=== PATIENT | female | born 1945 | race Caucasian/White ===

== ENCOUNTER → 2016-11-16 | Outpatient (CLI) | payer OTHER, MEDICARE ==
[~2016-11-16] MED LIST: ALBU1AER9 INH; ASPI81TA28 PO; CETI10TA84 PO; CHOL1000 PO; COQ10 PO; FENO145T26 PO; GLC500 PO; MULT-506 PO; OMEG10007 PO; ZNTT/150 PO; pro air PO
[2016-11-16 10:07] LABS: BLOOD UREA NITROGEN 20 mg/dl (7-18); BUN/CREATININE RATIO 19.8 (10-20); CALCIUM 9.4 mg/dl (8.5-10.1); CARBON DIOXIDE 25 mmol/L (21-32); CHLORIDE 104 mmol/L (98-107); ESTIMATED AVERAGE GLUCOSE 123 mg/dl; GLUCOSE 96 mg/dl (70-99); HA1C FLAG Normal (Normal); POTASSIUM 3.6 mmol/L (3.5-5.1); SODIUM 140 mmol/L (136-145)
[2016-11-16 10:11] LABS: CHOLESTEROL 213 mg/dl (0-200); CHOLESTEROL/HDL RATIO 4.6; HDL CHOLESTEROL 46 mg/dl; LDL CHOLESTEROL CALCULATED 134 mg/dl; TRIGLYCERIDES 165 mg/dl (0-150); VERY LOW DENSITY LIPOPROT CALC 33 mg/dl
--- NOTE | 2016-11-22 09:03 | CODING QUERY MEDICAL NECESSITY ---
SUPPORTING DIAGNOSIS NEEDED A supporting diagnosis is required for the test/procedure performed on this patient in order for us to be reimbursed by the patient's insurance. Please provide a supporting diagnosis for the following test/procedure listed below next to the test name along with your signature. *If there is no additional diagnosis for this patient that would support the following test/procedure please document that below next to the test/procedure. Test(s)/Procedure(s) that require a supporting diagnosis: * GLYCATED HEMOGLOBIN DIAGNOSIS: * DOS: 11/16/16 Provider Signature: Date: Thank you Sammi Pham Health Information Management Once completed, please kindly fax back to [phone] For questions please call [phone]
== END | disposition home or self-care (01) ==
LOC: C.LAB1850 07:13
PROVIDERS: ATTEND Internal Medicine
DX: Z00.00 Encounter for general adult medical examination without abnormal findings (principal); Z11.59 Encounter for screening for other viral diseases; R73.03 Prediabetes; J45.909 Unspecified asthma, uncomplicated; E78.5 Hyperlipidemia, unspecified

== ENCOUNTER → 2017-04-11 | Outpatient (CLI) | payer OTHER, MEDICARE ==
[2017-04-11 09:54] LABS: CHOLESTEROL/HDL RATIO 2.7
[2017-04-11 10:00] LABS: ESTIMATED AVERAGE GLUCOSE 117 mg/dl; HA1C FLAG Normal (Normal)
== END | disposition home or self-care (01) ==
LOC: C.LAB1850 07:36
PROVIDERS: ATTEND Internal Medicine
DX: E78.5 Hyperlipidemia, unspecified (principal); R73.03 Prediabetes

== ENCOUNTER → 2017-05-16 | Outpatient (CLI) | payer OTHER, MEDICARE ==
--- NOTE | 2017-05-16 16:43 | MAMMOGRAPHY REPORT ---
BILATERAL DIGITAL SCREENING MAMMOGRAM WITH CAD: 05/16/2017 CLINICAL HISTORY: Routine screening. Patient has no complaints. TECHNIQUE: Bilateral CC, MLO and repeat left MLO views were obtained. Current study was also evalua nikolai with a Computer Aided Detection (CAD) system. COMPARISON: Comparison is made to exams dated: 05/12/2016 mammogram, 05/11/2015 mammogram, 05/09/2014 ma mmogram, 05/08/2013 mammogram, 05/07/2012 mammogram, and 05/06/2011 [facility]. BREAST COMPOSITION: There are scattered areas of fibroglandular density in both breasts. FINDINGS: There are possible clusters of punctate microcalcifications in the lateral, middle one thi rd of the left breast, and in the slightly medial, middle one third of the left breast on the CC view , thought to project superiorly based on the MLO view. Additional spot magnification views are recom mended. There are a few benign-appearing coarse calcifications in both breasts. No other suspicious mass, ar chitectural distortion or cluster of suspicious microcalcifications is seen. IMPRESSION: ACR BI-RADS CATEGORY 0: INCOMPLETE EVALUATION: NEED ADDITIONAL IMAGING EVALUATION The possible clusters of punctate microcalcifications in the medial and lateral left breast need naomi tional evaluation. The patient will be called to schedule an appointment. Approximately 10% of breast cancers are not detected with mammography. A negative mammographic report should not delay biopsy if a clinically suggestive mass is present. Andreina Blanco M.D. ay/:05/16/2017 14:51:02 Annual Giving Officer: Nathalia BYRD([place])(Siddharth)(TR), [facility] letter sent: Addl Imaging 0 BI-RADS Code: ACR BI-RADS Category 0: Incomplete Evaluation: Need Additional Imaging Evaluation
== END | disposition home or self-care (01) ==
LOC: C.MAMM 10:51
PROVIDERS: ATTEND Obstetrics & Gynecology
DX: Z12.31 Encounter for screening mammogram for malignant neoplasm of breast (principal); R92.8 Other abnormal and inconclusive findings on diagnostic imaging of breast

== ENCOUNTER → 2017-05-18 | Outpatient (CLI) | payer OTHER, MEDICARE ==
--- NOTE | 2017-05-18 15:39 | MAMMOGRAPHY REPORT ---
UNILATERAL LEFT DIGITAL DIAGNOSTIC MAMMOGRAM: 05/18/2017 CLINICAL HISTORY: 71-year-old woman called back from screening mammography for left breast microcalci fications. TECHNIQUE: Spot magnification left CC and ML views were obtained. COMPARISON: Comparison is made to exams dated: 05/16/2017 mammogram, 05/12/2016 mammogram, 05/11/2015 choco mogram, 05/09/2014 mammogram, 05/08/2013 mammogram, and 05/07/2012 mammogram - [facility]. BREAST COMPOSITION: There are scattered areas of fibroglandular density in the left breast. FINDINGS: There are 2 small clusters and a loose grouping of microcalcifications in the left breast. This too small clusters of punctate microcavitation's measuring 2.2 and 1.5 mm are located in the l ateral, middle one third of the breast on the CC view, thought to project superiorly based on the spo t magnification ML view. A loose grouping of microcalcifications in the slightly medial, middle one third of the breast on the spot magnification CC view are also thought to project superiorly on the M L view. There is no obvious associated architectural distortion, mass or asymmetry. No other suspic ious findings are seen in the visualized left breast. When comparing back to prior available mammogr ams, the tightest cluster of microcalcifications in the lateral left breast (annotation #1) was not s een prior to the 2015 mammograms and is therefore indeterminate. Although this could represent benig n fibrocystic change, definitive characterization with tissue sampling is recommended. Pending benig n pathology results, could follow the other similar appearing cluster and loose grouping of microcalc ifications in 6 months to ensure stability. IMPRESSION: ACR BI-RADS CATEGORY 4B: INTERMEDIATE SUSPICION FOR MALIGNANCY 1. Left breast stereotactic guided biopsy is recommended for a small 2 mm cluster of punctate microc alcifications in the upper outer middle one third of the breast. 2. Pending benign pathology results, could follow the other similar appearing smaller cluster of pun ctate microcalcifications also identified in the left upper outer quadrant, and loose grouping of a m icrocalcifications in the medial left breast in 6 months. These results and recommendations were discussed with the patient at the time of the exam. She tenta tively scheduled the left breast biopsy prior to leaving our department. Approximately 10% of breast cancers are not detected with mammography. A negative mammographic report should not delay biopsy if a clinically suggestive mass is present. Anrdeina Blanco M.D. ay/:05/18/2017 14:31:53 Integration Project Manager: Caren BYRD([place])(Siddharth), [facility] letter sent: Abnormal 4/5 BI-RADS Code: ACR BI-RADS Category 4B: Intermediate Suspicion For Malignancy
== END | disposition home or self-care (01) ==
LOC: C.MAMM 13:11
PROVIDERS: ATTEND Obstetrics & Gynecology
DX: Z12.31 Encounter for screening mammogram for malignant neoplasm of breast (principal); R92.0 Mammographic microcalcification found on diagnostic imaging of breast

== ENCOUNTER → 2017-05-24 | Outpatient (CLI) | payer OTHER, MEDICARE ==
--- NOTE | 2017-05-24 09:47 | Discharge Instructions ---
Discharge Instructions Procedure Procedure Date: May 24, 2017. Reason for visit: Left Calcifications. Discharge Discharge Date: May 24, 2017. Discharge Diagnosis: post left breast stereotactic guided biopsy Medications Restart Stopped Medication(s): May restart Aspirin today or tomorrow Instructions Activity Recommendations: Additional Limitations Return to School/Work: no limitations Recommended Home Diet: No Limitations Provider Instructions: ACTIVITY RECOMMENDATIONS: * No lifting, pushing, pulling or exercising the affected side for three days. RETURN TO SCHOOL/WORK: * You may return to work/school after the procedure, but do not perform any strenuous activities for 24 to 48 hours. MEDICATIONS: * Tylenol (two 325 mg) every four to six hours if needed for mild pain (if not allergic to Tylenol). DIET: * Resume previous diet. SPECIAL CARE INSTRUCTIONS: * Keep biopsy site dry for 24 hours. May shower after 24 hours, but do not soak (bathe) incision. * May remove Tegaderm (plastic patch) tomorrow AFTER showering. * Leave the steri-strips on for one week. Allow the steri-strips to fall off by themselves. If not off after one week, you may remove them. You may place a Bandaid crosswise over the strips, if desired. * Apply ice 10 minutes on and 10 minutes off as needed. * Wear a bra at bedtime to sleep more comfortably for 2-3 days. * Your referring physician should have the results after approximately 5 to 7 business days. * Call for unusual bleeding, fever, drainage, etc or if you have any questions call [phone] during normal business hours or after hours call Dr Blanco, . FOLLOW UP VISIT: Follow-up with Referring Physician as scheduled. Allergies Coded Allergies: Bacitracin (Verified Allergy, Intermediate, HIVES, 10/13/15) Neomycin (Verified Allergy, Intermediate, HIVES, 10/13/15) Polymyxin B (Verified Allergy, Intermediate, HIVES, 10/13/15) Clindamycin (Verified Allergy, Mild, 10/13/15) Penicillins (Verified Allergy, Mild, 10/13/15) Hydrochlorothiazide w/Triamterene (Verified Allergy, Unknown, `, 10/13/15) Nickel (Verified Allergy, Unknown, `, 10/13/15) Sulfa Drugs (Verified Allergy, Unknown, 10/13/15) Tetracycline (Verified Allergy, Unknown, RASH, 10/13/15) Leisa Bobo Recommendations: Call your doctor if: * Temperature above 101 degrees * Pain not relieved by pain medicine ordered * There is increased drainage or redness from any incision * You have any unanswered questions or concerns. Your Doctors Instructions noted above were prepared by provider Andreina Blanco. Patient Signature Section: Patient Instructions Signature Page Karo Ashraf Patient (or Guardian) Signature/Date: I have read and understand the instructions given to me by my caregivers. Caregiver/RN/Doctor Signature/Date: The above-named patient and/or guardian has received patient instructions on this date. + Original Patient Signature Page (only) stays with chart. Please make copy for patient.
--- NOTE | 2017-05-24 14:20 | MAMMOGRAPHY REPORT ---
UNILATERAL LEFT DIGITAL DIAGNOSTIC MAMMOGRAM: 05/24/2017 CLINICAL HISTORY: Status post stereotactic guided biopsy of a small cluster of punctate microcalcific ations in the upper outer middle one third of the left breast. Please refer to the report from left breast stereotactic biopsy performed at the same time for full d etail. IMPRESSION: POST PROCEDURE IMAGING FOR MARKER PLACEMENT Please refer to the report from left breast stereotactic biopsy performed at the same time for full d etail. Approximately 10% of breast cancers are not detected with mammography. A negative mammographic report should not delay biopsy if a clinically suggestive mass is present. Andreina Blanco M.D. ay/:05/24/2017 09:34:13 Chief Mechanical Engineer: Marc BYRD([place])(M), [facility] BI-RADS Code: Post Procedure Imaging For Marker Placement
--- NOTE | 2017-05-24 14:20 | MAMMOGRAPHY REPORT ---
THIS REPORT HAS BEEN AMENDED. STEREOTACTIC GUIDED BIOPSY LEFT BREAST: 05/24/2017 CLINICAL HISTORY: Small indeterminate cluster of punctate microcalcifications in the upper outer midd le one third of the left breast. Patient presents for stereotactic biopsy. COMPARISON: Comparison is made to exams dated: 05/18/2017 mammogram, 05/16/2017 mammogram, 05/12/2016 mamm ogram, 05/11/2015 mammogram, 05/09/2014 mammogram, and 05/08/2013 mammogram - [facility]. PATIENT CONSENT: After explaining the risks, benefits and alternatives of the procedure to the patien t, informed consent was obtained both verbally and in writing. Specific risks include: Bleeding, inf ection, puncture of adjacent structure, pain, nontarget biopsy, sampling error, metal allergy and med ication reaction. PROCEDURE DESCRIPTION: A time-out was performed and the left breast was confirmed as the site of biop sy. The patient was placed prone on the stereotactic biopsy table and the breast was placed in CC fro m above compression. A manufacturing director image was obtained that demonstrated the clustered microcalcifications i n question. They are amenable to sterotactic biopsy. Then +15 and -15 stereo pair images were obta ined. The calcifications were targeted utilizing the coordinates obtained by the computer. The skin was prepped with Betadine. 1% Lidocaine with and without epinipherine was administered as local anest hesia. A small skin incision was made. Through the incision, the needle was inserted to the depth de termined by the computer. 7 samples were obtained using a [employer] 9-gauge vacuum-assisted biopsy device. The specimen radiograph demonstrated several traveling sales representative microcalcifications, therefore, a metallic marker was placed at the biopsy site. There was no immediate complication. Hemostasis was a chieved after several minutes of manual compression. The samples were sent to pathology in a single appropriately labeled container, as 1-2 calcifications were noted within multiple samples. Postprocedure CC and ML views of the left breast were obtained. There is a new dumbbell shaped meta llic biopsy marker and a small, 1.5 cm hematoma along the tract of the biopsy. No residual microcalc ifications are identified. There is alignment of the biopsy marker clip with the expected prior loca tion of the small cluster of punctate microcalcifications. IMPRESSION: STEREOTACTIC GUIDED BIOPSY Status post left breast stereotactic guided biopsy of a grouping of punctate microcavitation's in the upper outer quadrant, with metallic marker placed at the site. Pending benign pathology results, follow-up left diagnostic mammograms include spot magnification vie ws are recommended to ensure stability in 6 months of other groupings of microcalcifications, also de scribed on the diagnostic mammogram report dated 05/18/2017. The patient will receive notification of the biopsy results from her referring physician. Andreina Blanco M.D. ay/:05/24/2017 09:57:27 Leach Cell Operator: Marc BYRD([place])(M), [facility] AMENDMENT: 05/31/2017 Andreina Blanco M.D. Pathology results from the stereotactic guided biopsy of a cluster of microcalcifications in the uppe r outer quadrant of the left breast yielded benign breast tissue with microcalcifications. Negative for in situ and invasive carcinoma. The pathology results are concordant with the imaging appearance . A six-month follow-up left diagnostic mammogram including spot magnification views is recommended to ensure stability of other similar appearing loosely grouped microcalcifications seen in the left [address].
== END | disposition home or self-care (01) ==
LOC: C.MAMM 08:12
PROVIDERS: ATTEND Obstetrics & Gynecology
DX: R92.0 Mammographic microcalcification found on diagnostic imaging of breast (principal)

== ENCOUNTER → 2017-08-22 | Outpatient (CLI) | payer OTHER, MEDICARE ==
[2017-08-22 15:32] LABS: BASO % 0.7 %; BASO ABS # 0.05 K/uL (0-0.2); COMPLETE YES; EOS % 3.9 %; HEMATOCRIT 43.4 % (37-47); IG% 0.4 %; LYMPH % 24.4 %; LYMPH ABS # 1.86 K/uL (1.2-3.4); MEAN CORPUSCULAR HEMOGLOBIN 30.2 pg (25-34); MEAN CORPUSCULAR HGB CONC 33.2 g/dl (32-36); MEAN PLATELET VOLUME 9.6 fL (7.4-10.4); MONO % 6.8 %; NEUT % 63.8 %; PLATELET COUNT 248 K/uL (130-400); RED BLOOD COUNT 4.77 M/uL (4.2-5.4); WHITE BLOOD COUNT 7.61 K/uL (4.8-10.8)
== END | disposition home or self-care (01) ==
LOC: C.LAB1850 14:26
PROVIDERS: ATTEND Internal Medicine
DX: R59.0 Localized enlarged lymph nodes (principal)

== ENCOUNTER → 2017-10-12 | Outpatient (CLI) | payer OTHER, MEDICARE ==
[2017-10-12 09:33] LABS: HEMOGLOBIN 14.1 g/dL (12.0-16.0); MEAN CELL VOLUME 89.7 fL (80-100); MEAN CORPUSCULAR HEMOGLOBIN 30.1 pg (25-34); MEAN CORPUSCULAR HGB CONC 33.6 g/dl (32-36); MEAN PLATELET VOLUME 9.4 fL (7.4-10.4); PLATELET COUNT 258 K/uL (130-400); RED CELL DISTRIBUTION WIDTH CV 14.5 % (11.5-14.5); RED CELL DISTRIBUTION WIDTH SD 47.2 fL (36.4-46.3); WHITE BLOOD COUNT 6.72 K/uL (4.8-10.8)
[2017-10-12 10:27] LABS: ALT/SGPT 25 U/L (12-78); AST/SGOT 17 U/L (15-37); BLOOD UREA NITROGEN 19 mg/dl (7-18); CALCIUM 9.6 mg/dl (8.5-10.1); CARBON DIOXIDE 28 mmol/L (21-32); CHOLESTEROL 203 mg/dl (0-200); CREATININE 0.86 mg/dl (0.60-1.20); GLUCOSE 93 mg/dl (70-99); POTASSIUM 3.8 mmol/L (3.5-5.1); SODIUM 140 mmol/L (136-145)
[2017-10-12 10:36] LABS: LDL CHOLESTEROL CALCULATED 126 mg/dl
[2017-10-12 10:48] LABS: HEMOGLOBIN A1C 5.8 % (4.5-5.6)
== END | disposition home or self-care (01) ==
LOC: C.LAB1850 07:59
PROVIDERS: ATTEND Internal Medicine
DX: E78.5 Hyperlipidemia, unspecified (principal); R73.03 Prediabetes; J45.909 Unspecified asthma, uncomplicated

== ENCOUNTER → 2017-11-21 | Outpatient (CLI) | payer OTHER, MEDICARE ==
[~2017-11-21] MED LIST changes: +RANI150T85 PO; -ZNTT/150 PO
--- NOTE | 2017-11-21 15:14 | MAMMOGRAPHY REPORT ---
UNILATERAL LEFT DIGITAL DIAGNOSTIC MAMMOGRAM TOMOSYNTHESIS WITH CAD: 11/21/2017 CLINICAL HISTORY: 71-year-old woman presents for follow-up in the left breast. Initially, 2 grouping s of microcalcifications were seen and stereotactic biopsy was performed of the tighter cluster of ca lcifications in the upper outer quadrant of the left breast. She presents for follow-up of a looser grouping of faint punctate microcalcifications in the central/retroareolar left breast. TECHNIQUE: Left breast CC and MLO 2D and tomosynthesis images, spot magnification left CC and ML view s were obtained. Current study was also evaluated with a Computer Aided Detection (CAD) system. COMPARISON: Comparison is made to exams dated: 05/24/2017 mammogram, 05/18/2017 mammogram, 05/16/2017 choco mogram, 05/12/2016 mammogram, 05/11/2015 mammogram, and 05/09/2014 mammogram - [facility]. BREAST COMPOSITION: There are scattered areas of fibroglandular density in the left breast. FINDINGS: There is a stable dumbbell-shaped biopsy marker clip in the upper outer middle one third of the left breast, denoting the site of prior benign stereotactic guided biopsy. There are stable kaylynn ign-appearing coarse rodlike calcifications in the medial left breast. The spot magnification views redemonstrate a loose grouping of very faint punctate microcalcifications in the 12:00 and retroareol ar middle and anterior left breast, that are stable compared to the prior spot magnification views ob tained on 05/18/2017. Another six-month follow-up left diagnostic mammogram including spot magnificati on views is recommended to ensure longer stability. No new suspicious masses, calcifications, asymme tries or areas of architectural distortion are identified in the left breast. IMPRESSION: ACR-BI-RADS CATEGORY 3: PROBABLY BENIGN Stable mammographic appearance of the left breast including stable postbiopsy changes in the upper ou ter quadrant, and a stable loose grouping of faint punctate microcalcifications at the 12:00 and retr oareolar left breast. Another six-month follow-up left diagnostic mammogram including spot magnifica tion views is recommended to ensure longer stability of the non-biopsied punctate microcalcifications . Annual right mammography will also be due at that time. These results and recommendations were discussed with the patient at the time of the exam. She tenta tively scheduled a follow-up appointment prior to leaving our department. Approximately 10% of breast cancers are not detected with mammography. A negative mammographic report should not delay biopsy if a clinically suggestive mass is present. Andreina Blanco M.D. ay/:11/21/2017 11:30:06 Bread Icer: Bhavya BYRD(R)(Siddharth), [facility] letter sent: Follow Up Recommended 3 BI-RADS Code: ACR-BI-RADS Category 3: Probably Benign
== END | disposition home or self-care (01) ==
LOC: C.MAMM 10:23
PROVIDERS: ATTEND Obstetrics & Gynecology
DX: R92.0 Mammographic microcalcification found on diagnostic imaging of breast (principal)

== ENCOUNTER → 2017-12-13 | Outpatient (CLI) | payer OTHER, MEDICARE | END | disposition home or self-care (01) | LOC: C.LAB1850 10:07 | PROVIDERS: ATTEND Internal Medicine | DX: E03.9 Hypothyroidism, unspecified (principal) ==

== ENCOUNTER 2019-08-26 13:22 | Observation (INO) ==
[2019-08-26] MEDS ORDERED: MoRPHine SULFATE 4 MG/ML 1 ML CARP\\VIAL IV STA ×2 (14:30→16:02)
[2019-08-26] MEDS ORDERED: ONDANSETRON INJ 2 MG/ML 2 ML VIAL IV STA (14:30)
--- NOTE | 2019-08-26 14:38 | Emergency Department Note ---
ED Visit Note This patient was seen in concert with Dr. Ventura and we discussed and agreed upon the history, physical, assessment and plan. See attending's note for details. Resident Activity Tracking Resident Involvement: Resident Care Provided Care Provided: Adult ED
[2019-08-26 14:52] LABS: Basophils # (auto) 0.02 K/uL (0-0.2); Basophils % (auto) 0.3 %; Eosinophils # (auto) 0.33 K/uL (0-0.5); Eosinophils % (auto) 4.5 %; Hematocrit (blood only) 41.1 % (37-47); Hemoglobin 13.7 g/dL (12.0-16.0); Immature Granulocytes # (auto) 0.02 K/uL (0.00-0.02); Immature Granulocytes % (auto) 0.3 %; Lymphocytes # (auto) 1.57 K/uL (1.2-3.4); Lymphocytes % (auto) 21.5 %; Mean Corpuscular Hemoglobin 29.3 pg (25-34); Mean Corpuscular Hgb Conc 33.3 g/dL (32-36); Mean Corpuscular Volume 87.8 fL (80-100); Mean Platelet Volume 9.3 fL (7.4-10.4); Monocytes # (auto) 0.57 K/uL (0.11-0.59); Monocytes % (auto) 7.8 %; Neutrophils % (auto) 65.6 %; Platelet Count 254 K/uL (130-400); RDW Coefficient of Variation 14.4 % (11.5-14.5); RDW Standard Deviation 45.7 fL (36.4-46.3); Red Blood Count 4.68 M/uL (4.2-5.4); White Blood Count 7.31 K/uL (4.8-10.8)
--- NOTE | 2019-08-26 14:58 | History & Physical Report ---
Date of Service August 26, 2019 Assessment & Plan (1) Left-sided low back pain with sciatica: At this time would like to admit the patient for adequate pain control we will request medical management. I would like to obtain an MRI lumbar spine without gadolinium to rule out adjacent level disease to account for severe sciatica. This is reviewed in detail the patient and her they understand and agree. Present on Admission?: Yes History of Present Illness Chief Complaint: Back and left leg pain with inability to ambulate Primary Care Provider: Tawanda Villela MD This is a 73-year-old female well-known to me that presents with a marked decline in status over the past 2 weeks. She presents the emergency room today with the inability to ambulate without severe pain in the lumbosacral junction radiating down the left buttock and left leg. This is been progressive for the past 2 weeks. She denies any precipitating trauma fall or event. She does have a history of a spinal fusion several years ago and known sacroiliac joint dysfunction. She is taken oral pain medications at home without any improvement in her pain. Anti-inflammatories are not helpful. No loss of bowel or bladder control. Allergies Allergy/AdvReac Type Severity Reaction Status Date / Time bacitracin Allergy Intermediate HIVES Verified 03/26/19 11:21 neomycin Allergy Intermediate HIVES Verified 03/26/19 11:21 polymyxin B Allergy Intermediate HIVES Verified 03/26/19 11:21 clindamycin Allergy Mild Verified 03/26/19 11:21 Dyazide Allergy Unknown ` Verified 10/28/15 11:40 hydrochlorothiazide Allergy Unknown ` Verified 03/26/19 11:21 nickel Allergy Unknown ` Verified 03/26/19 11:21 Sulfa (Sulfonamide Allergy Unknown Verified 03/26/19 11:21 Antibiotics) tetracycline Allergy Unknown RASH Verified 03/26/19 11:21 triamterene Allergy Unknown ` Verified 03/26/19 11:21 doxycycline Allergy Rash Verified 03/26/19 11:21 Home Medications Home Medications Medication Instructions Recorded Confirmed Type albuterol sulfate [ProAir HFA] 1 puff INHALATION Q6H PRN 05/25/18 03/26/19 History aspirin 81 mg PO QPM 05/25/18 03/26/19 History cholecalciferol (vitamin D3) 1,000 unit PO QAM 05/25/18 03/26/19 History [Vitamin D3] coQ10 (ubiquinol) 200 mg PO QAM 05/25/18 03/26/19 History fenofibrate nanocrystallized 145 mg PO QAM 05/25/18 03/26/19 History metformin 500 mg PO BID 05/25/18 03/26/19 History vhfovgtqpqex-kfiqoheh-wemwze 1 tab PO QAM 05/25/18 03/26/19 History [Multivitamin 50 Plus] omega 1-gso-uas-fish oil [Fish Oil] 1 tab PO DAILY 05/25/18 03/26/19 History ranitidine HCl 150 mg PO BID 05/25/18 03/26/19 History Lactobacillus cap PO cap 03/05/19 03/05/19 History acidophilus-Bifidobac.animalis 31 billion cell capsule diclofenac sodium 1 % topical gel 2 gm TOPICAL ONCE PRN gm 03/26/19 03/26/19 History ipratropium bromide 0.03 % nasal 2 sprays INTNAS BID 03/26/19 03/26/19 History spray levothyroxine 75 mcg tablet 75 mcg PO DAILY #90 tab 06/07/19 Rx Past Med/Surg History Medical History Adenomatous colon polyp (Acute) Asthma PRN INH 1 X MONTH ON AVG. LAST EXAC APPROX 1 MONTH AGO. FOLLOWS W/ DR. VILLELA. Asthma (Acute) Cardiac murmur per pt echo 2010 was WNL Cervical lymphadenopathy (Acute) Chronic back pain Degenerative disc disease Degenerative disc disease (Acute) Encounter for pre-operative examination (Acute) Generalized osteoarthritis of multiple sites (Acute) GERD (gastroesophageal reflux disease) (Acute) Hiatal hernia (Acute) HLD (hyperlipidemia) (Acute) Hyperlipidemia Hypernatremia (Acute) Hypothyroidism (Acute) Insulin resistance on Metformin Internal hemorrhoids (Acute) Metabolic disorder (Acute) Neurogenic claudication due to lumbar spinal stenosis (Acute) Osteoarthritis Osteoarthritis (Acute) Pre-diabetes (Acute) Spinal stenosis Spinal stenosis (Acute) Venous stasis (Acute) Surgical History Fusion of spine L4-5, L5-S1, 2010 [facility], no complications per anesthesia record H/O foot surgery H/O sinus surgery (Acute) History of appendectomy History of carpal tunnel release BL History of colonoscopy History of laminectomy CERVICAL History of tonsillectomy and adenoidectomy Hx of LASIK S/P breast biopsy, right BENIGN Family History Father Coronary heart disease Colon cancer Myocardial infarction Unknown Coronary heart disease Colon cancer Brother Prostate cancer Myocardial infarction Mother Stroke Other Family history of diabetes mellitus Social History Preferred Language: Albanian Communication Ability: Effective Visual Impairment: No Limitations Hearing Ability: Normal Printing Plate Setter Required: No Beliefs That Will Affect Care: None marital status: Current Living Situation: Spouse Feels Safe at Home: Yes Smoking Status: Never smoker Second Hand Exposure: Yes ( A CHILD, NOT CURRENTLY) ; Hx Alcohol Use: Yes Alcohol type: beer and wine Hx Substance Use: No Physical Exam Physical Exam: On exam she is in obvious distress. She is exquisitely tenderness palpation of the left sciatic notch and left SI joint. Sensory appears to be symmetric and intact bilaterally. She is plus out of 5 plantar flexion dorsiflexion bilaterally but marked deficit in the quadriceps on the left compared to the right. She is a markedly positive logroll was with immediate reproduction of pain left buttock. She has no groin pain at this time. She is sensitive to straight leg raising on the left versus the right. Results & Data Vital Signs (Past 12 Hours) Vital Signs Temp Pulse Resp BP Pulse Ox 08/26/19 13:28 36.4 C L 83 18 187/77 H 98
[2019-08-26 15:10] LABS: BUN Creatinine Ratio 17.7 (10-20); Calcium 9.4 mg/dl (8.5-10.1); Creatinine Clr Calc Pharmacy 44.9 ml/min; Est GFR (African American) 68.5; Est GFR (Non-African American) 59.1
[2019-08-26 15:27] LABS: Appearance Urine Clear (Clear); Bacteria Urine Automated Negative (Negative); Bilirubin Urine Negative (Negative); Blood Urine Negative (Negative); Color Urine Yellow; Epithelial Cell Urine Auto 20-30 /lpf (0-5); Glucose Urine UA Negative (Negative); Ketones Urine Negative (Negative); Leukocyte Esterase Urine 1+ (Negative); Nitrite Urine Negative (Negative); Protein Urine Negative (Negative); RBC Urine Automated 0-4 /hpf (0-4); Specific Gravity Urine 1.018 (1.000-1.030); Urobilinogen Urine Negative (Negative)
[2019-08-26] MEDS ORDERED: ONDANSETRON 4 MG OD TAB PO PRN (16:25)
[2019-08-26] MEDS ORDERED: OXYCODONE HCL IR 5 MG TAB (IMMEDIATE RELEASE) PO PRN (16:25)
[2019-08-26] MEDS ORDERED: PROMETHAZINE HCL 12.5 MG in SODIUM CHLORIDE 0.9% 50 ML IV PRN (16:25)
[2019-08-26] MEDS ORDERED: LORazepam 1 MG/2 ML VIAL IV PRN (16:25)
[2019-08-26] MEDS ORDERED: HYDROmorphone INJ 1 MG/ML SYRINGE IV PRN (16:25)
[2019-08-26] MEDS ORDERED: ACETAMINOPHEN 500 MG TAB PO PRN (16:25)
[2019-08-26] MEDS ORDERED: ONDANSETRON INJ 2 MG/ML 2 ML VIAL IV PRN (16:25)
[2019-08-26] MEDS ORDERED: LORazepam 1 MG TAB PO PRN (16:25)
[2019-08-26] MEDS ORDERED: METOCLOPRAMIDE HCL INJ 5 MG/ML 2 ML VIAL IV PRN (16:25)
--- NOTE | 2019-08-26 16:49 | Emergency Department Note ---
Entered by Yasmine Jones acting as a scribe for Liban Ventura MD History of Present Illness General Chief complaint: Back Injury/Pain Stated complaint: BACK PAIN Time Seen by Provider: 08/26/19 13:48 Source: patient Mode of arrival: ambulatory Limitations: no limitations History of Present Illness Onset (ago): week(s) 2 Location: back (low back) Radiation: non-radiation Maximum Pain Intensity: 4 Current Pain Intensity: 4 Relieved By: + medication (OTC medicine) and + rest Exacerbated By: + movement Associated symptoms: + other (+burning in left buttock that radiates into left thigh, -incontinence of bladder or bowel, -saddle anesthesia) Treatments prior to arrival: other (OTC medicine) The patient is a 73 year old female who presents to the ED with complaints of low back pain. She has a history of spinal stenosis and degenerative disc disease. She most recently had an L3/L4 [place]. Suther[place] [facility] [place] For the past 2 weeks, she has experienced recurrent low back pain. She rates her discomfort as a 4/10 in severity. She believes a minor twisting motion may have triggered this cascade. OTC medicine and rest were able to help at first, but 2 days ago, her pain worsened. Movement worsens her discomfort. The pain is accompanied by a burning in her left buttock into her left thigh. The pain is constant in nature and rates her discomfort as a 9/10 in severity. She denies any incontinence of bladder or bowel or saddle anesthesia. Home Medications Home Medications Medication Instructions Recorded Confirmed Type albuterol sulfate [ProAir HFA] 1 puff INHALATION Q6H PRN 05/25/18 03/26/19 History aspirin 81 mg PO QPM 05/25/18 03/26/19 History cholecalciferol (vitamin D3) 1,000 unit PO QAM 05/25/18 03/26/19 History [Vitamin D3] coQ10 (ubiquinol) 200 mg PO QAM 05/25/18 03/26/19 History fenofibrate nanocrystallized 145 mg PO QAM 05/25/18 03/26/19 History metformin 500 mg PO BID 05/25/18 03/26/19 History rzbrzzenhvjm-zkwxuldv-adfvhq 1 tab PO QAM 05/25/18 03/26/19 History [Multivitamin 50 Plus] omega 5-bnq-spu-fish oil [Fish Oil] 1 tab PO DAILY 05/25/18 03/26/19 History ranitidine HCl 150 mg PO BID 05/25/18 03/26/19 History Lactobacillus cap PO cap 03/05/19 03/05/19 History acidophilus-Bifidobac.animalis 31 billion cell capsule diclofenac sodium 1 % topical gel 2 gm TOPICAL ONCE PRN gm 03/26/19 03/26/19 History ipratropium bromide 0.03 % nasal 2 sprays INTNAS BID 03/26/19 03/26/19 History spray levothyroxine 75 mcg tablet 75 mcg PO DAILY #90 tab 06/07/19 Rx Allergies Allergy/AdvReac Type Severity Reaction Status Date / Time bacitracin Allergy Intermediate HIVES Verified 08/26/19 15:32 doxycycline Allergy Intermediate Rash Verified 08/26/19 16:40 neomycin Allergy Intermediate HIVES Verified 08/26/19 15:32 polymyxin B Allergy Intermediate HIVES Verified 08/26/19 15:32 tetracycline Allergy Intermediate RASH Verified 08/26/19 16:40 clindamycin Allergy Mild Unknown Verified 08/26/19 16:40 Dyazide Allergy Unknown ` Verified 10/28/15 11:40 hydrochlorothiazide Allergy Unknown ` Verified 08/26/19 15:32 nickel Allergy Unknown ` Verified 08/26/19 15:32 Sulfa (Sulfonamide Allergy Unknown Unknown Verified 08/26/19 16:40 Antibiotics) triamterene Allergy Unknown ` Verified 08/26/19 15:32 Past Med/Surg History Medical History Adenomatous colon polyp (Acute) Asthma PRN INH 1 X MONTH ON AVG. LAST EXAC APPROX 1 MONTH AGO. FOLLOWS W/ PRO. Asthma (Acute) Cardiac murmur per pt echo 2010 was WNL Cervical lymphadenopathy (Acute) Chronic back pain Degenerative disc disease Degenerative disc disease (Acute) Encounter for pre-operative examination (Acute) Generalized osteoarthritis of multiple sites (Acute) GERD (gastroesophageal reflux disease) (Acute) Hiatal hernia (Acute) HLD (hyperlipidemia) (Acute) Hyperlipidemia Hypernatremia (Acute) Hypothyroidism (Acute) Insulin resistance on Metformin Internal hemorrhoids (Acute) Metabolic disorder (Acute) Neurogenic claudication due to lumbar spinal stenosis (Acute) Osteoarthritis Osteoarthritis (Acute) Pre-diabetes (Acute) Spinal stenosis Spinal stenosis (Acute) Venous stasis (Acute) Surgical History Fusion of spine L4-5, L5-S1, 2010 [facility], no complications per anesthesia record H/O foot surgery H/O sinus surgery (Acute) History of appendectomy History of carpal tunnel release BL History of colonoscopy History of laminectomy CERVICAL History of tonsillectomy and adenoidectomy Hx of LASIK S/P breast biopsy, right BENIGN Family History Father Coronary heart disease Colon cancer Myocardial infarction Unknown Coronary heart disease Colon cancer Brother Prostate cancer Myocardial infarction Mother Stroke Other Family history of diabetes mellitus Social History Preferred Language: Albanian Communication Ability: Effective Visual Impairment: No Limitations Hearing Ability: Normal Director Mobile Required: No Beliefs That Will Affect Care: Spiritual Spiritual Healthcare Practices: Worship marital status: Current Living Situation: Spouse Other Information That Helps Us Care for You: No Feels Safe at Home: Yes Safety Concerns: Feels Safe At This Time Smoking Status: Never smoker Second Hand Exposure: Yes ( A CHILD, NOT CURRENTLY) ; Hx Alcohol Use: Yes Alcohol type: wine Hx Substance Use: No Review of Systems See HPI for pertinent positives & negatives. and A total of 10 systems reviewed and were otherwise negative Physical Exam Vital Signs Vital Signs - 24 hr 08/26/19 13:28 08/26/19 14:43 Temperature 36.4 C L Temperature Source Oral Pulse Rate 83 Pulse Rate [Finger] 71 Pulse Rhythm [Finger] Regular Pulse Strength [Finger] Normal Respiratory Rate 18 16 Respiratory Effort / Characteristics Non-Labored Spontaneous Non-Labored Spontaneous Respiratory Depth Normal Normal Respiratory Pattern Regular Regular Blood Pressure 187/77 H Blood Pressure [Left Arm] 135/75 Blood Pressure Mean 113 Blood Pressure Mean [Left Arm] 95 Blood Pressure Position Sitting Blood Pressure Position [Left Arm] Lying Pulse Oximetry 98 95 Oxygen Delivery Method Room Air Room Air Sepsis Recent Fever Within 48 Hours No Sepsis New/Unexplained Change in Mental Status No Sepsis Action Taken by Nursing No Action Required GENERAL: Patient is in no acute distress. HEENT: No acute trauma, normocephalic atraumatic, mucous membranes moist, no nasal congestion, no scleral icterus. NECK: No stridor, no adenopathy, no meningismus, trachea is midline. LUNGS: Clear to auscultation bilaterally, no wheeze, no rhonchi, breath sounds equal. HEART: Without murmurs gallops or rubs, regular rate and rhythm. BACK: Tender in the left lumbar musculature and left buttock, movement of the left leg especially left leg raise causes pain. ABDOMEN: Soft, nontender, bowel sounds positive, no hernias, no peritonitis. EXTREMITIES: No cyanosis or edema, full range of motion of all the joints without pain or difficulty, no signs for acute trauma. NEUROLOGIC: Oriented x 3, no acute motor or sensory deficits, no focal weakness. Has 2/4 patellar and achilles reflexes bilaterally. SKIN: No rash, no jaundice, no diaphoresis. Course Course 1435: The patient was evaluated in room C1 and a complete history and physical were performed. 1438: I discussed the patients case with Dr. Sutherland, [facility]. The patient will be further evaluated. 1535: I reevaluated the patient. Her pain is adequately controlled on Morphine. Administered Medications Hydromorphone HCl (Dilaudid) 0.5 mg IV Q3H PRN PRN Reason: moderate pain (scale 4-6) Stop: 09/09/19 16:24 Last Admin: 08/26/19 18:49 Dose: 0.5 mg Documented by: [id number] Lactated Ringer's (Lr) 1,000 mls @ 75 mls/hr IV .[id number] Stop: 09/25/19 16:24 Last Admin: 08/26/19 18:49 Dose: 75 mls/hr Documented by: [id number] Discontinued Medications Morphine Sulfate (Morphine Sulfate) 4 mg IV NOW STA Stop: 08/26/19 14:31 Last Admin: 08/26/19 14:43 Dose: 4 mg Documented by: [id number] Morphine Sulfate (Morphine Sulfate) 4 mg IV NOW STA Stop: 08/26/19 16:03 Last Admin: 08/26/19 16:04 Dose: 4 mg Documented by: [id number] Ondansetron HCl (Zofran) 4 mg IV NOW STA Stop: 08/26/19 14:31 Last Admin: 08/26/19 14:43 Dose: 4 mg Documented by: [id number] Medical Decision Making Differential Diagnosis The differential diagnoses considered include hardware loosening, hardware fracture, lumbar disc disease, nerve impingement, sciatica, hematoma, fracture, acute on chronic pain. Medical Records Attestation: I reviewed the patient's medical records. Home Medications Current Medication List: was personally reviewed by me Laboratory Data Attestation: I reviewed the patient's lab results. Result diagrams: 08/26/19 14:38 08/26/19 14:38 Lab Results 08/26/19 08/26/19 Range/Units 14:38 14:38 WBC 7.31 (4.8-10.8) K/uL RBC 4.68 (4.2-5.4) M/uL Hgb 13.7 (12.0-16.0) g/dL Hct 41.1 (37-47) % MCV 87.8 (80-100) fL MCH 29.3 (25-34) pg MCHC 33.3 (32-36) g/dL RDW Std Deviation 45.7 (36.4-46.3) fL RDW Coeff of [place] 14.4 (11.5-14.5) % Plt Count 254 (130-400) K/uL MPV 9.3 (7.4-10.4) fL Immature Gran % (Auto) 0.3 % Neut % (Auto) 65.6 % Lymph % (Auto) 21.5 % [place] % (Auto) 7.8 % Eos % (Auto) 4.5 % Baso % (Auto) 0.3 % Immature Gran # (Auto) 0.02 (0.00-0.02) K/uL Neut # (Auto) 4.80 (1.4-6.5) K/uL Lymph # (Auto) 1.57 (1.2-3.4) K/uL [place] # (Auto) 0.57 (0.11-0.59) K/uL Eos # (Auto) 0.33 (0-0.5) K/uL Baso # (Auto) 0.02 (0-0.2) K/uL Sodium 142 (136-145) mmol/L Potassium 4.0 (3.5-5.1) mmol/L Chloride 109 H (98-107) mmol/L Carbon Dioxide 27 (21-32) mmol/L Anion Gap 6.0 (3-11) BUN 17 (7-18) mg/dl Creatinine 0.96 (0.6-1.2) mg/dl Est Cr Clr Drug Dosing 44.9 ml/min Est GFR ( Amer) 68.5 Est GFR (Non-Af Amer) 59.1 BUN/Creatinine Ratio 17.7 (10-20) Glucose 107 H (70-99) mg/dl Calcium 9.4 (8.5-10.1) mg/dl Blood Pressure Blood Pressure Findings: Elevated blood pressure Blood Pressure Disposition: further management by hospitalist LEONEL Narrative There is no leukocytosis or concerning anemia. No significant electrolyte abnormality or kidney failure. Urinalysis did not show any evidence for infection, some contamination was seen. On exam, the patient did not have any evidence for a lower extremity reflex deficit. She was not febrile, she was not toxic. She was having a lot of lower back pain with any type of movement. The patient received IV morphine as needed for pain, she was given IV Zofran. The patient has a history of back issues, she has had 2 surgeries. Her spinal surgeon was consulted. The patient was seen in the ED by spinal surgery. The patient is going to be hospitalized. Imaging as per spinal surgery. Of note, the patient does seem to be feeling improved since the morphine was administered. At this point, the cause for her pain is unclear, further work-up is warranted. Impression & Plan Lower back pain, Sciatica, Failure of outpatient treatment Discharge Plan Visit Data *Final* Discharge Date/Time: 08/26/19 16:06 Chief Complaint: Back Injury/Pain Stated Complaint: BACK PAIN ED Provider: Liban Ventura ED Midlevel Provider: Amira Jcaques Discharge Problem: Lower back pain, Sciatica, Failure of outpatient treatment Patient Disposition: Admitted As Inpatient Discharge Instructions Interventions: ED Discharge Assessment Last Done: 08/26/19 16:06 The scribe's documentation has been prepared under my direction and personally reviewed by me in its entirety. I confirm that the note above accurately reflects all work, treatment, procedures, and medical decision making performed by me.
--- NOTE | 2019-08-26 17:24 | XRay Report ---
XR orbits for MRI CLINICAL HISTORY: 73 years-old Female presenting with PREVIOUS METAL IN EYE. TECHNIQUE: 3 views of the orbits were obtained. COMPARISON: None. FINDINGS: No radiopaque intraorbital foreign body. Bony orbits grossly intact. Paranasal sinuses grossly clear. Visualized portion of the calvarium intact. IMPRESSION: No intraorbital metallic foreign body to preclude MRI exam. Electronically signed by: Timmy Rai M.D. 08/26/2019 5:23 PM
--- NOTE | 2019-08-26 18:16 | Magnetic Resonance Report ---
LUMBAR SPINE MRI HISTORY: Back and left leg pain TECHNIQUE: Multiplanar multisequence MRI of the lumbar spine was performed without the use of contras t. COMPARISON: None. FINDINGS: For the purpose of the report the L5-S1 disc space will be located on axial image 27 of 30. Alignment and curvature are intact. No fractures within the lumbar spine. The conus terminate at the L1-L2 disc space level. Mild to moderate disc space narrowing at L2-L3 and moderate disc space narrow ing at L4-L5. There are disc spaces at L3-L4 and L4-L5. There is posterior decompression from L3 thro ugh S1 with pedicle screws and rods at L3-L4. Small amount of fluid at the laminectomy sites favors p ostoperative change. Mild disc space narrowing at T12-L1. Evidence for prior pedicle screw removal at L5 and S1. Paravertebral soft tissues are unremarkable. T12-L1: Small focal central disc protrusion without significant central canal or neural foraminal yari rowing. L1-L2: No significant central canal or neural foraminal narrowing. L2-L3: Broad-based posterior disc bulge with a small focal central disc protrusion. No significant ce ntral canal or neural foraminal narrowing. L3-L4: No significant central canal narrowing due to the posterior decompression. No significant neur al foraminal narrowing. L4-L5: No significant central canal narrowing due to the posterior decompression. No significant neur al foraminal narrowing. L5-S1: No central central canal or right-sided neural foraminal narrowing. There is mild left-sided n eural foraminal narrowing due to focal area of fatty tissue along the left inferior foramen likely re presenting postoperative change. IMPRESSION: 1. No fracture or subluxation within the lumbar spine. 2. Postoperative changes as described above. 3. Small focal central disc protrusion at L2-L3 without significant central canal or neural foraminal narrowing. 4. No significant central canal narrowing. 5. Small amount of fluid at the laminectomy sites favors postoperative change. Electronically signed by: Omero Galvin M.D. 08/26/2019 6:15 PM
[2019-08-26] MEDS: LACTATED RINGER'S 1,000 ML IV SCH (18:49)
[2019-08-26] MEDS: HYDROmorphone INJ 0.5 MG/0.5 ML SYR IV PRN ×2 (18:49→22:53)
[2019-08-26] MEDS ORDERED: ALBUTEROL 0.083% NEBU SOLN 3 ML VIAL NEB PRN (19:49)
[2019-08-26] MEDS ORDERED: DEXTROSE 50% 50 ML SYRINGE IV PRN (19:50)
[2019-08-26] MEDS ORDERED: GLUCOSE 10 TABS/TUBE PO PRN (19:50)
[2019-08-26] MEDS ORDERED: GLUCOSE 40% GEL 15 GM TUBE PO PRN (19:50)
[2019-08-26] MEDS ORDERED: CARBOHYDRATES FOR HYPOGLYCEMIA PO PRN (19:50)
[2019-08-26] MEDS ORDERED: GLUCAGON FOR INJ 1 MG VIAL SQ PRN (19:50)
[2019-08-26] MEDS: DOCUSATE SODIUM 100 MG CAP PO SCH (20:04)
[2019-08-26] MEDS ORDERED: INSULIN ASPART 100 UNITS/ML 3 ML PEN SC SCH (21:00)
--- NOTE | 2019-08-26 21:02 | Hospitalist Consultation ---
Date of Consultation August 26, 2019 Assessment & Plan (1) Left-sided low back pain with sciatica: As per primary team. Thank you for this consult We will follow with you. (2) Pre-diabetes: I held metformin in the event she has IV dye Will do one touches and cover with sliding scale insulin (3) Hypothyroidism: Continue levothyroxine. (4) HLD (hyperlipidemia): Continue fenofibrate (5) Osteoarthritis: (6) Asthma: Patient reports using inhaler infrequently. She only has bronchospasm with strong scents. Albuterol neb prn. (7) GERD (gastroesophageal reflux disease): Ordered Pepcid in lieu of ranitidine which is on back order. History of Present Illness Reason for Consultation: medical management Attending Physician: Kenny Sutherland DO History of Present Illness 73 y/o female is admitted with intractable back pain. Upon my evaluation on the F the patient is comfortable and had just went to the bathroom under her own power. She has no complaints at this time. Allergies Allergy/AdvReac Type Severity Reaction Status Date / Time bacitracin Allergy Intermediate HIVES Verified 08/26/19 15:32 doxycycline Allergy Intermediate Rash Verified 08/26/19 16:40 neomycin Allergy Intermediate HIVES Verified 08/26/19 15:32 polymyxin B Allergy Intermediate HIVES Verified 08/26/19 15:32 tetracycline Allergy Intermediate RASH Verified 08/26/19 16:40 clindamycin Allergy Mild Unknown Verified 08/26/19 16:40 Dyazide Allergy Unknown ` Verified 10/28/15 11:40 hydrochlorothiazide Allergy Unknown ` Verified 08/26/19 15:32 nickel Allergy Unknown ` Verified 08/26/19 15:32 Sulfa (Sulfonamide Allergy Unknown Unknown Verified 08/26/19 16:40 Antibiotics) triamterene Allergy Unknown ` Verified 08/26/19 15:32 Home Medications Home Medications Medication Instructions Recorded Confirmed Type albuterol sulfate [ProAir HFA] 1 puff INHALATION Q6H PRN 05/25/18 03/26/19 History aspirin 81 mg PO QPM 05/25/18 03/26/19 History cholecalciferol (vitamin D3) 1,000 unit PO QAM 05/25/18 03/26/19 History [Vitamin D3] coQ10 (ubiquinol) 200 mg PO QAM 05/25/18 03/26/19 History fenofibrate nanocrystallized 145 mg PO QAM 05/25/18 03/26/19 History metformin 500 mg PO BID 05/25/18 03/26/19 History qlfcznvjqyyf-vsdglfin-oryqog 1 tab PO QAM 05/25/18 03/26/19 History [Multivitamin 50 Plus] omega 2-xke-reb-fish oil [Fish Oil] 1 tab PO DAILY 05/25/18 03/26/19 History ranitidine HCl 150 mg PO BID 05/25/18 03/26/19 History Lactobacillus cap PO cap 03/05/19 03/05/19 History acidophilus-Bifidobac.animalis 31 billion cell capsule diclofenac sodium 1 % topical gel 2 gm TOPICAL ONCE PRN gm 03/26/19 03/26/19 History ipratropium bromide 0.03 % nasal 2 sprays INTNAS BID 03/26/19 03/26/19 History spray levothyroxine 75 mcg tablet 75 mcg PO DAILY #90 tab 06/07/19 Rx Patient History Medical History Adenomatous colon polyp (Acute) Asthma PRN INH 1 X MONTH ON AVG. LAST EXAC APPROX 1 MONTH AGO. FOLLOWS W/ DR. VILLELA. Asthma (Acute) Cardiac murmur per pt echo 2010 was WNL Cervical lymphadenopathy (Acute) Chronic back pain Degenerative disc disease Degenerative disc disease (Acute) Encounter for pre-operative examination (Acute) Generalized osteoarthritis of multiple sites (Acute) GERD (gastroesophageal reflux disease) (Acute) Hiatal hernia (Acute) HLD (hyperlipidemia) (Acute) Hyperlipidemia Hypernatremia (Acute) Hypothyroidism (Acute) Insulin resistance on Metformin Internal hemorrhoids (Acute) Metabolic disorder (Acute) Neurogenic claudication due to lumbar spinal stenosis (Acute) Osteoarthritis Osteoarthritis (Acute) Pre-diabetes (Acute) Spinal stenosis Spinal stenosis (Acute) Venous stasis (Acute) Surgical History Fusion of spine L4-5, L5-S1, 2010 [facility], no complications per anesthesia record H/O foot surgery H/O sinus surgery (Acute) History of appendectomy History of carpal tunnel release BL History of colonoscopy History of laminectomy CERVICAL History of tonsillectomy and adenoidectomy Hx of LASIK S/P breast biopsy, right BENIGN Family History Father Coronary heart disease Colon cancer Myocardial infarction Unknown Coronary heart disease Colon cancer Brother Prostate cancer Myocardial infarction Mother Stroke Other Family history of diabetes mellitus Social History Preferred Language: [place] Communication Ability: Effective Visual Impairment: No Limitations Hearing Ability: Normal Laser/Electro Optics Technician Required: No Beliefs That Will Affect Care: Spiritual Spiritual Healthcare Practices: Episcopal marital status: Current Living Situation: Spouse Other Information That Helps Us Care for You: No Feels Safe at Home: Yes Safety Concerns: Feels Safe At This Time Smoking Status: Never smoker Second Hand Exposure: Yes ( A CHILD, NOT CURRENTLY) ; Hx Alcohol Use: Yes Alcohol type: wine Hx Substance Use: No Review of Systems 2 Review of Systems: Constitutional- no fever; no weight loss Eyes- no acute visual changes ENT- no sinus drainage; no pharyngitis Pulmonary- no cough, no wheezing, no shortness of breath Cardiac- no chest pain, no palpitations, no orthopnea, no dependent edema GI- no nausea, no vomiting, no diarrhea, no melena, no hematochezia - no dysuria, no hematuria Musculoskeletal- no arthralgias, no myalgias. Back pain as in HPI. Derm- no rashes, no new skin lesions. Hematologic- no unusual bruising, no unusual bleeding Lymphatics- no adenopathy Endocrine- no polyuria or polydipsia; no heat or cold intolerance Neuro- no headaches, no focal neurologic symptoms Psych- no anxiety, no depression Physical Exam Physical Exam: General- adult female, NAD Head- atraumatic Eyes- PERRL, EOMI, anicteric ENT- oropharynx clear Neck- supple, no JVD, no adenopathy, no thyromegaly. Lungs- CTA b/l no R/R/W. Heart- regular rhythm; no murmur, no gallop, no rub appreciated Abdomen- normal bowel sounds, soft, nontender. 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 Skin- warm & dry Results & Data Vital Signs (Past 12 Hours) Vital Signs Temp Pulse Pulse Resp BP BP Pulse Ox 08/26/19 16:26 36.2 C L 62 14 145/78 H 95 08/26/19 16:05 72 16 131/63 96 08/26/19 14:43 71 16 135/75 95 08/26/19 13:28 36.4 C L 83 18 187/77 H 98 Laboratory Results Laboratory Results WBC 7.31 K/uL (4.8-10.8) 08/26/19 14:38 RBC 4.68 M/uL (4.2-5.4) 08/26/19 14:38 Hgb 13.7 g/dL (12.0-16.0) 08/26/19 14:38 Hct 41.1 % (37-47) 08/26/19 14:38 MCV 87.8 fL (80-100) 08/26/19 14:38 MCH 29.3 pg (25-34) 08/26/19 14:38 MCHC 33.3 g/dL (32-36) 08/26/19 14:38 RDW Std Deviation 45.7 fL (36.4-46.3) 08/26/19 14:38 RDW Coeff of Dlel 14.4 % (11.5-14.5) 08/26/19 14:38 Plt Count 254 K/uL (130-400) 08/26/19 14:38 MPV 9.3 fL (7.4-10.4) 08/26/19 14:38 Immature Gran % (Auto) 0.3 % 08/26/19 14:38 Neut % (Auto) 65.6 % 08/26/19 14:38 Lymph % (Auto) 21.5 % 08/26/19 14:38 [place] % (Auto) 7.8 % 08/26/19 14:38 Eos % (Auto) 4.5 % 08/26/19 14:38 Baso % (Auto) 0.3 % 08/26/19 14:38 Immature Gran # (Auto) 0.02 K/uL (0.00-0.02) 08/26/19 14:38 Neut # (Auto) 4.80 K/uL (1.4-6.5) 08/26/19 14:38 Lymph # (Auto) 1.57 K/uL (1.2-3.4) 08/26/19 14:38 [place] # (Auto) 0.57 K/uL (0.11-0.59) 08/26/19 14:38 Eos # (Auto) 0.33 K/uL (0-0.5) 08/26/19 14:38 Baso # (Auto) 0.02 K/uL (0-0.2) 08/26/19 14:38 Sodium 142 mmol/L (136-145) 08/26/19 14:38 Potassium 4.0 mmol/L (3.5-5.1) 08/26/19 14:38 Chloride 109 mmol/L (98-107) H 08/26/19 14:38 Carbon Dioxide 27 mmol/L (21-32) 08/26/19 14:38 Anion Gap 6.0 (3-11) 08/26/19 14:38 BUN 17 mg/dl (7-18) 08/26/19 14:38 Creatinine 0.96 mg/dl (0.6-1.2) 08/26/19 14:38 Est Cr Clr Drug Dosing 44.9 ml/min 08/26/19 14:38 Est GFR ( Amer) 68.5 08/26/19 14:38 Est GFR (Non-Af Amer) 59.1 08/26/19 14:38 BUN/Creatinine Ratio 17.7 (10-20) 08/26/19 14:38 Glucose 107 mg/dl (70-99) H 08/26/19 14:38 POC Glucose 102 (70-99) H 08/26/19 20:42 Calcium 9.4 mg/dl (8.5-10.1) 08/26/19 14:38 Urine Color Yellow 08/26/19 15:14 Urine Appearance Clear (Clear) 08/26/19 15:14 Urine pH 6.0 (4.5-7.5) 08/26/19 15:14 Ur Specific [place] 1.018 (1.000-1.030) 08/26/19 15:14 Urine Protein Negative (Negative) 08/26/19 15:14 Urine Glucose (UA) Negative (Negative) 08/26/19 15:14 Urine Ketones Negative (Negative) 08/26/19 15:14 Urine Blood Negative (Negative) 08/26/19 15:14 Urine Nitrite Negative (Negative) 08/26/19 15:14 Urine Bilirubin Negative (Negative) 08/26/19 15:14 Urine Urobilinogen Negative (Negative) 08/26/19 15:14 Ur Leukocyte Esterase 1+ (Negative) H 08/26/19 15:14 Urine WBC (Auto) 5-10 /hpf (0-5) H 08/26/19 15:14 Urine RBC (Auto) 0-4 /hpf (0-4) 08/26/19 15:14 U Hyaline Cast (Auto) 1-5 /lpf (0-5) 08/26/19 15:14 U Epithel Cells (Auto) 20-30 /lpf (0-5) H 08/26/19 15:14 Urine Bacteria (Auto) Negative (Negative) 08/26/19 15:14 Diagnostic Findings [place], [place] [phone] Magnetic Resonance Report Patient: POLY GUARDADO AAdmit Date: 08/26/19 MR#: [id number]: [address] Acct ID:[id number]: Date: 1945City Zip: [place] [address] Age: 73Location: 3N Sex: F Room/Bed: [facility] Att Phy: Kenny Sutherland D.O.Diagnosis: BACK AND LEG PAIN, INABILITY TO AMBULATE Alie Phy: Tawanda Villela MDService Date: 08/26/19 Fam Phy:Interpreting Phy: Omero Galvin MD Admit Phy: Kenny Sutherland D.O. Ordering Phy: Kenny Sutherland D.O. cc: ~ LUMBAR SPINE MRI HISTORY: Back and left leg pain TECHNIQUE: Multiplanar multisequence MRI of the lumbar spine was performed without the use of contrast. COMPARISON: None. FINDINGS: For the purpose of the report the L5-S1 disc space will be located on axial image of . Alignment and curvature are intact. No fractures within the lumbar spine. The conus terminate at the L1-L2 disc space level. Mild to moderate disc space narrowing at L2-L3 and moderate disc space narrowing at L4-L5. There are disc spaces at L3-L4 and L4-L5. There is posterior decompression from L3 through S1 with pedicle screws and rods at L3-L4. Small amount of fluid at the laminectomy sites favors postoperative change. Mild disc space narrowing at T12-L1. Evidence for prior pedicle screw removal at L5 and S1. Paravertebral soft tissues are unremarkable. T12-L1: Small focal central disc protrusion without significant central canal or neural foraminal narrowing. L1-L2: No significant central canal or neural foraminal narrowing. L2-L3: Broad-based posterior disc bulge with a small focal central disc protrusion. No significant central canal or neural foraminal narrowing. L3-L4: No significant central canal narrowing due to the posterior decompression. No significant neural foraminal narrowing. L4-L5: No significant central canal narrowing due to the posterior decompression. No significant neural foraminal narrowing. L5-S1: No central central canal or right-sided neural foraminal narrowing. There is mild left-sided neural foraminal narrowing due to focal area of fatty tissue along the left inferior foramen likely representing postoperative change. IMPRESSION: 1. No fracture or subluxation within the lumbar spine. 2. Postoperative changes as described above. 3. Small focal central disc protrusion at L2-L3 without significant central canal or neural foraminal narrowing. 4. No significant central canal narrowing. 5. Small amount of fluid at the laminectomy sites favors postoperative change. Electronically signed by: Omero Galvin M.D. 08/26/2019 6:15 PM Dictated: 08/26/19 180 Transcribed: 08/26/191807 PG Care Time/CCT Total # of Minutes Spent Total Time Spent with Patient: Total time spent is greater than 50% in coordination of care (as documented) at patient's floor/unit and/or counseling patient:
[2019-08-26] MEDS: FAMOTIDINE 20 MG TAB PO SCH (21:13)
[2019-08-27] MEDS ORDERED: Nursing to Pharmacy Communication ONE (02:04)
[2019-08-27] MEDS: TRAMADOL HCL 50 MG TABLET PO PRN ×2 (04:02→08:40)
[2019-08-27] MEDS ORDERED: INSULIN ASPART 100 UNITS/ML 3 ML PEN SC SCH (06:00)
[2019-08-27] MEDS: LACTATED RINGER'S 1,000 ML IV SCH (06:14)
[2019-08-27] MEDS ORDERED: LEVOTHYROXINE SODIUM 75 MCG TABLET PO SCH (06:30)
[2019-08-27] MEDS: DOCUSATE SODIUM 100 MG CAP PO SCH (08:39)
[2019-08-27] MEDS: FAMOTIDINE 20 MG TAB PO SCH (08:40)
[2019-08-27] MEDS ORDERED: FENOFIBRATE NANOCRYSTALLIZED 145 MG TABLET PO SCH (09:00)
--- NOTE | 2019-08-27 11:00 | Discharge Summary ---
Date of Service August 27, 2019 Admission HPI Per Admitting Provider This is a 73-year-old female well-known to me that presents with a marked decline in status over the past 2 weeks. She presents the emergency room today with the inability to ambulate without severe pain in the lumbosacral junction radiating down the left buttock and left leg. This is been progressive for the past 2 weeks. She denies any precipitating trauma fall or event. She does have a history of a spinal fusion several years ago and known sacroiliac joint dysfunction. She is taken oral pain medications at home without any improvement in her pain. Anti-inflammatories are not helpful. No loss of bowel or bladder control. Principal Diagnosis Severe left sacroiliitis Discharge Data Allergies Allergy/AdvReac Type Severity Reaction Status Date / Time bacitracin Allergy Intermediate HIVES Verified 08/26/19 15:32 doxycycline Allergy Intermediate Rash Verified 08/26/19 16:40 neomycin Allergy Intermediate HIVES Verified 08/26/19 15:32 polymyxin B Allergy Intermediate HIVES Verified 08/26/19 15:32 tetracycline Allergy Intermediate RASH Verified 08/26/19 16:40 clindamycin Allergy Mild Unknown Verified 08/26/19 16:40 Dyazide Allergy Unknown ` Verified 10/28/15 11:40 hydrochlorothiazide Allergy Unknown ` Verified 08/26/19 15:32 nickel Allergy Unknown ` Verified 08/26/19 15:32 Sulfa (Sulfonamide Allergy Unknown Unknown Verified 08/26/19 16:40 Antibiotics) triamterene Allergy Unknown ` Verified 08/26/19 15:32 Consultations 08/26/19 15:07 ED Decision to Admit Stat 08/26/19 16:25 Consult Internal Medicine Routine Ordered Studies 08/26/19 16:25 MR lumbar spine wo con Stat Hospital Course (1) Left-sided low back pain with sciatica: Patient was admitted with severe SI joint and left leg pain. She required IV narcotics for pain control. I was able to update an MRI of the lumbar spine demonstrate some modest disease at the L2-3 level but no severe neural compression. Subsequently discussed this with the patient understands majority symptoms are again the SI joint we are arranging an outpatient SI joint injection. Patient understands agrees subsequently discharged. Total Time Total Time Spent Total Time Spent (In Minutes): 20 minutes Discharge Plan Discharge Items Patient Disposition: Home - Self-Care Reason For Visit: BACK AND LEG PAIN, INABILITY TO AMBULATE Discharge Diagnosis: Severe sacroiliitis on the left Activity: As commented below Lifting: No more than 10 pounds Bathing: No limitations Non-emergency contact: Primary Care Provider Call non-emergency contact if: you have any medication questions Follow-up/Referrals: Tawanda Villela MD [Primary Care Provider] - Diet: Regular Addtl Attending Provider Instructions: Follow-up as scheduled next Monday in the office. Pending Studies at Discharge: No Stand-Alone Forms: My [facility] [employer], Smoking Cessation Medications and DC Order Prescriptions: New oxycodone 5 mg tablet 5 mg PO Q6H PRN (Reason: pain, severe) Qty: 15 RF: 0 Continued levothyroxine 75 mcg tablet 75 mcg PO DAILY Qty: 90 RF: 3 Lacto.acidophilus-Bif.animalis 31 billion cell capsule PO RF: 0 diclofenac sodium 1 % gel 2 gm topical ONCE PRNRF: 0 ipratropium bromide 0.03 % spray,non-aerosol 2 sprays INTNAS BID RF: 0 ranitidine HCl 150 mg Tablet 150 mg PO BID RF: 0 aspirin 81 mg Tablet,Chewable 81 mg PO QPM RF: 0 albuterol sulfate [ProAir HFA] 90 mcg/actuation Hfa Aerosol Inhaler 1 puff INHALATION Q6H PRN (Reason: Shortness Of Breath) RF: 0 cholecalciferol (vitamin D3) [Vitamin D3] 1,000 unit Capsule 1,000 unit PO QAM RF: 0 uzxffxhpmfng-rmuvxevd-uejbdf [Multivitamin 50 Plus] Tablet 1 tab PO QAM RF: 0 fenofibrate nanocrystallized 145 mg Tablet 145 mg PO QAM RF: 0 coQ10 (ubiquinol) 200 mg Capsule 200 mg PO QAM RF: 0 omega 4-kag-ywg-fish oil [Fish Oil] 1,000 mg (120 mg-180 mg) Capsule 1 tab PO DAILY RF: 0 metformin 500 mg Tablet 500 mg PO BID RF: 0 Discharge Orders: Discharge Order (Routine); Ordered 08/27/19 Ordered By: Kenny Sutherland Admission Data Admit Date/Time: 08/26/19 15:02 Attending Provider: Kenny Sutherland Admit Provider: Kenny Sutherland Primary Care Provider: Tawanda Villela Other Providers: Kenny Sutherland ; Indy Nicolas.
--- NOTE | 2019-08-27 18:14 | Communication Note ---
Date of Service: August 27, 2019 Patient seen this morning. Patient already with orders to discharge per primary team. Based on MRI findings, patient to continue with medical management instead of surgery at this time. Patient states her pain is still present but not as severe as when she arrived. She states the pain has been a daily occurrence over the last several weeks with radiation down her legs. Prior to the past several weeks, the patient stated it had only been every once in a while. Patient to be seen by pain management this afternoon for SI injection by Dr. Duarte. Patient dressed an awaiting paperwork prior to my arrival. To follow up with Dr. Sutherland in the next week as well as PCP. Blood count and electrolytes stable prior to discharge.
== END 2019-08-27 12:15 | disposition home or self-care (01) ==
LOC: 3N 13:22 → ED 13:22 → 3N 16:06

== ENCOUNTER 2019-10-03 06:11 | Inpatient (IN) ==
--- NOTE | 2019-09-13 09:02 | PAT Medication Instructions ---
Medication Instructions Date of Service September 13, 2019 Home Medications Medication Instructions Recorded oxycodone 5 mg PO Q6H PRN #15 tab 08/27/19 Multivitamin 50 Plus 1 tab PO QAM albuterol sulfate [ProAir HFA] 1 puff INHALATION Q6H PRN aspirin 81 mg PO QPM cholecalciferol (vitamin D3) [Vitamin D3] 1,000 unit PO QAM coQ10 (ubiquinol) 200 mg PO QAM fenofibrate nanocrystallized 145 mg PO QAM metformin 500 mg PO BID omega 8-rgf-xry-fish oil [Fish Oil] 1 cap PO QAM ranitidine HCl 150 mg PO BID diclofenac sodium 1 % topical gel 2 gm TOPICAL DAILY PRN ipratropium bromide 0.03 % nasal spray 2 sprays INTNAS TID oxycodone 5 mg PO Q6H PRN levothyroxine 75 mcg PO QAM montelukast 10 mg PO PM ASK your prescriber and surgeon aspirin 81 mg PO QPM STOP taking 2 weeks before surgery (or as soon as possible if surgery is within 2 weeks) coQ10 (ubiquinol) 200 mg PO QAM omega 2-drs-ure-fish oil [Fish Oil] 1 cap PO QAM STOP taking 48 hours before surgery fenofibrate nanocrystallized 145 mg PO QAM STOP taking 24 hours before surgery diclofenac sodium 1 % topical gel 2 gm TOPICAL DAILY PRN DO NOT take the morning of surgery Multivitamin 50 Plus 1 tab PO QAM cholecalciferol (vitamin D3) [Vitamin D3] 1,000 unit PO QAM metformin 500 mg PO BID ranitidine HCl 150 mg PO BID Take morning of surgery With a small sip of water, OTHERWISE NOTHING TO EAT OR DRINK AFTER MIDNIGHT: albuterol sulfate [ProAir HFA] 1 puff INHALATION Q6H PRN (use if needed; please bring with you to hospital day of surgery if possible) ipratropium bromide 0.03 % nasal spray 2 sprays INTNAS TID oxycodone 5 mg PO Q6H PRN (okay to take up to 4 hours prior to surgery if needed) levothyroxine 75 mcg PO QAM Take evening before surgery albuterol sulfate [ProAir HFA] 1 puff INHALATION Q6H PRN (if needed) metformin 500 mg PO BID ranitidine HCl 150 mg PO BID ipratropium bromide 0.03 % nasal spray 2 sprays INTNAS TID oxycodone 5 mg PO Q6H PRN (if needed) montelukast 10 mg PO PM Other Notes If you have any questions please call us at [phone] or [phone] or [phone] or [phone]
--- NOTE | 2019-09-16 10:27 | Anesthesiology Consultation ---
Date of Service September 16, 2019 Assessment & Plan (1) Encounter for pre-operative examination: - Awaiting review of preop testing (labs, EKG, CXR). - Check BSG AM DOS - Patient goes by "Ольга" Chart Review Chart Review: Patient seen in Pre Admission Testing Teaching & Discussion Pre-Anesthesia Teaching/Discussion Notes: Instructed NPO after midnight before surgery,except medications with 15 cc of water. Medication instructions provided according to the PAT guidelines. History Surgery Operation Date: 10/03/19 13:15 Proposed Procedures p Left Sacroiliac Joint Fusion - Kenny Sutherland DO Height/Weight Height: 5 ft Weight: 65.4 kg Allergies Allergy/AdvReac Type Severity Reaction Status Date / Time clindamycin Allergy Severe full body Verified 09/16/19 10:43 rash hydrochlorothiazide Allergy Severe severe Verified 09/16/19 10:43 rash and itching (with Dyazide) nickel Allergy Severe rash, Verified 09/12/19 12:08 blisters, full body itching Sulfa (Sulfonamide Allergy Severe rash Verified 09/16/19 10:43 Antibiotics) bacitracin Allergy Intermediate hives Verified 09/16/19 10:43 doxycycline Allergy Intermediate rash Verified 09/16/19 10:43 neomycin Allergy Intermediate hives Verified 09/16/19 10:43 polymyxin B Allergy Intermediate hives Verified 09/16/19 10:43 tetracycline Allergy Intermediate rash Verified 09/16/19 10:43 Dyazide Allergy Unknown ` Verified 10/28/15 11:40 triamterene Allergy Unknown severe Verified 09/16/19 10:43 rash and itching (with Dyazide) Additional Notes: *OR/surgeon office made aware of nickel allergy* Medications Home Medications Medication Instructions Recorded Confirmed Last Taken Multivitamin 50 Plus 1 tab PO QAM 05/25/18 09/12/19 05/25/18 06:30 albuterol sulfate [ProAir HFA] 1 puff INHALATION Q6H PRN 05/25/18 09/12/19 Unknown aspirin 81 mg PO QPM 05/25/18 09/12/19 06/03/18 19:30 cholecalciferol (vitamin D3) 1,000 unit PO QAM 05/25/18 09/12/19 05/25/18 06:30 [Vitamin D3] coQ10 (ubiquinol) 200 mg PO QAM 05/25/18 09/12/19 05/25/18 06:30 fenofibrate nanocrystallized 145 mg PO QAM 05/25/18 09/12/19 06/03/18 19:30 metformin 500 mg PO BID 05/25/18 09/12/19 06/03/18 17:30 omega 9-kwt-sfe-fish oil [Fish Oil] 1 cap PO QAM 05/25/18 09/12/19 05/25/18 06:30 ranitidine HCl 150 mg PO BID 05/25/18 09/12/19 06/03/18 19:30 diclofenac sodium 1 % topical gel 2 gm TOPICAL DAILY PRN gm 03/26/19 09/12/19 Unknown ipratropium bromide 0.03 % nasal 2 sprays INTNAS TID 03/26/19 09/12/19 Unknown spray oxycodone 5 mg PO Q6H PRN #15 tab 08/27/19 09/12/19 Unknown levothyroxine 75 mcg PO QAM 09/12/19 09/12/19 Unknown montelukast 10 mg PO PM 09/12/19 09/12/19 Unknown Past Medical History Medical History (Updated 09/16/19 @ 10:45 by Christine Salas) Asthma stable Cervical lymphadenopathy Chronic back pain Degenerative disc disease Generalized osteoarthritis of multiple sites GERD (gastroesophageal reflux disease) occasional Hiatal hernia Hyperlipidemia Hypothyroidism Insulin resistance on Metformin Neurogenic claudication due to lumbar spinal stenosis Osteoarthritis Spinal stenosis Venous stasis Exercise / Class Metabolic Activity III < 4 Walking/Shop/Light housework Past Family History Family History Father Colon cancer Coronary heart disease Myocardial infarction Unknown Colon cancer Coronary heart disease Brother Prostate cancer Myocardial infarction Mother Stroke Other Family history of diabetes mellitus No family history of adverse response to anesthesia Past Surgical History Surgical History Fusion of spine L4-5, L5-S1 fusion (2010) L3-L4 decompression/fusion + hardware removal (06/04/18): Grade view 1, MAC#3 ETT 7.0 [facility] H/O foot surgery Left foot fusion with 5 pins H/O sinus surgery (Acute) History of appendectomy History of carpal tunnel release B/L History of colonoscopy History of laminectomy CERVICAL (1975) "Full ROM" History of tonsillectomy and adenoidectomy Hx of LASIK RIGHT/LEFT S/P breast biopsy, right BENIGN Past Anesthesia History No Hx of Anesthesia Complications and No Family Hx of Anesthesia Complications History of PONV No Hx of PONV and No Hx of Motion Sickness Social History Smoking Status: Never smoker Do You Dip or Chew Tobacco: No Hx Alcohol Use: Yes Alcohol type: wine alcohol intake frequency: a few times a month Hx Substance Use: No substance use type: painkillers Review of Systems Patient denies chest pain, shortness of breath, reflux, cough, wheezing, palpitations. Physical Exam Vital Signs VITALS BP 168/89 (132/78 with manual recheck right) P 78 TEMP 98.3 SP02 96%RA RESP 18 PHYSICAL Full neck and c-spine range of motion. Full TMJ range of motion. TMD 3.5 finger breaths Mallampati Score 2 Dentition: several implants/crowns, veneers upper front, upper front left side implant/bridge Lungs: clear throughout to auscultation Cardiac: regular rate and rhythm, no murmurs noted Spine: normal Carotid arteries: negative bruit Extremities: no edema Testing Laboratory Results 09/06/19 WBC 7.06 H/H 14.6/44.2 PLATELETS 298 SODIUM 141 POTASSIUM 3.8 CHLORIDE 108 CO2 28 BUN 20 CREATININE 0.87 GLUCOSE 97 HGBA1C 5.7%
--- NOTE | 2019-09-16 11:21 | XRay Report ---
XR chest Pre-admission PA/Lat CLINICAL HISTORY: Preoperative chest COMPARISON STUDY: 05/30/2018 FINDINGS: The heart is normal in size. There is mild aortic tortuosity. There is no failure. There is no focal pulmonary consolidation. There are no pleural effusions. Postsurgical changes are present w ithin the lumbar spine. Degenerative changes are present within the thoracic spine. There is a thorac olumbar scoliosis.[ IMPRESSION: No active disease in the chest. ACT 112: Negative or not required by law. Electronically signed by: Meng Martinez M.D. 09/16/2019 11:19 AM
[2019-09-16 12:44] LABS: Appearance Urine Clear (Clear); Bacteria Urine Automated Negative (Negative); Bilirubin Urine Negative (Negative); Blood Urine Negative (Negative); Color Urine Yellow; Epithelial Cell Urine Auto >30 /lpf (0-5); Glucose Urine UA Negative (Negative); Ketones Urine Negative (Negative); Leukocyte Esterase Urine Trace (Negative); Nitrite Urine Negative (Negative); Protein Urine Negative (Negative); RBC Urine Automated 0-4 /hpf (0-4); Specific Gravity Urine 1.015 (1.000-1.030); Urobilinogen Urine Negative (Negative)
[2019-09-16 12:48] LABS: INR 1.1 (0.9-1.1); Partial Thromboplastin Ratio 0.9; Partial Thromboplastin Time 24.5 Seconds (21.0-31.0); Prothrombin Time 11.4 Seconds (9.0-12.0)
--- NOTE | 2019-09-16 15:34 | Electrocardiogram Report ---
Test Reason : Blood Pressure : / mmHG Vent. Rate : 080 BPM Atrial Rate : 080 BPM P-R Int : 164 ms QRS Dur : 100 ms QT Int : 384 ms P-R-T Axes : 054 -26 011 degrees QTc Int : 442 ms Normal sinus rhythm Incomplete right bundle branch block Nonspecific ST and T wave abnormality Abnormal ECG When compared with ECG of 26-MAY-2011 09:31, Nonspecific T wave abnormality, improved in Inferior leads T wave inversion no longer evident in Anterior leads Confirmed by Tawanda Pino ([id number]) on 09/16/2019 3:34:26 PM Referred By: Kenny Sutherland Confirmed By:Tawanda Pino
[~2019-10-03 06:11] MED LIST changes: +ACETAMINOPHEN 500 MG TAB PO SCH; -ALBU1AER9 INH; -ASPI81TA28 PO; +CEFAZOLIN 1000MG 1,000 MG/7.5 ML SYR IV SCH; -CETI10TA84 PO; -CHOL1000 PO; -COQ10 PO; +CeleBREX 200 MG CAP PO SCH; -FENO145T26 PO; +GABAPENTIN 300 MG CAP PO SCH; -GLC500 PO; +LR 15ML/HR IV SCH; -MULT-506 PO; -OMEG10007 PO; -RANI150T85 PO; -pro air PO
[2019-10-03] MEDS ORDERED: fentaNYL citrate 100 MCG/2 ML VIAL ONE (07:04)
[2019-10-03] MEDS ORDERED: MIDAZOLAM HCL 1 MG/ML 2ML VIAL ONE (07:04)
[2019-10-03] MEDS ORDERED: BUPIVACAINE/EPINEPHRINE 0.5% MPF 1:200,000 10 ML VIAL ONE (07:05)
[2019-10-03] MEDS ORDERED: LIDOCAINE HCL 2% 2 ML VIAL/AMP(20MG/ML) INFIL ONE (07:11)
[2019-10-03] MEDS ORDERED: PROPOFOL IV EMULSION 10 MG/ML 20 ML VIAL IV ONE (07:11)
[2019-10-03] MEDS ORDERED: ROCURONIUM BROMIDE 10 MG/ML 5 ML VIAL ONE (07:11)
[2019-10-03] MEDS ORDERED: DEXAMETHASONE SOD INJ 4 MG/ML VIAL ONE (07:12)
[2019-10-03] MEDS ORDERED: ONDANSETRON INJ 2 MG/ML 2 ML VIAL ONE (07:12)
[2019-10-03] MEDS ORDERED: ONDANSETRON INJ 2 MG/ML 2 ML VIAL IV PRN (07:17)
[2019-10-03] MEDS ORDERED: ATROPINE SULFATE 0.1 MG/ML 10ML SYR IV PRN (07:17)
[2019-10-03] MEDS ORDERED: LABETALOL HCL IV 5 MG/ML 20ML IV PRN (07:17)
--- NOTE | 2019-10-03 07:23 | History & Physical Bridge Note ---
Date of Service October 03, 2019 History & Physical Bridge Note I have examined the patient, reviewed the History & Physical and in the interval since the performance of the History & Physical I have noted the following changes of clinical significance: no changes noted
--- NOTE | 2019-10-03 07:24 | History & Physical Report ---
Date of Service October 03, 2019 Assessment & Plan (1) Sacroiliitis: Left sacroiliac joint fusion Present on Admission?: Yes History of Present Illness Chief Complaint: Left sacroiliac pain Primary Care Provider: Tawanda Villela MD This is a 73-year-old female known to the presents with chronic persistent sacroiliitis. After failing extensive course of nonoperative care she is here for surgical intervention. Allergies Allergy/AdvReac Type Severity Reaction Status Date / Time clindamycin Allergy Severe full body Verified 10/03/19 06:44 rash hydrochlorothiazide Allergy Severe severe Verified 10/03/19 06:44 rash and itching (with Dyazide) nickel Allergy Severe rash, Verified 10/03/19 06:44 blisters, full body itching Sulfa (Sulfonamide Allergy Severe rash Verified 10/03/19 06:44 Antibiotics) triamterene Allergy Severe severe Verified 10/03/19 06:46 rash and itching (with Dyazide) bacitracin Allergy Intermediate hives Verified 10/03/19 06:44 doxycycline Allergy Intermediate rash Verified 10/03/19 06:44 neomycin Allergy Intermediate hives Verified 10/03/19 06:44 polymyxin B Allergy Intermediate hives Verified 10/03/19 06:44 tetracycline Allergy Intermediate rash Verified 10/03/19 06:44 gold sodium thiomalate Allergy Mild Rash Verified 10/03/19 06:46 Dyazide Allergy Unknown ` Verified 10/28/15 11:40 Home Medications Home Medications Medication Instructions Recorded Confirmed Type Multivitamin 50 Plus 1 tab PO QAM 05/25/18 10/03/19 History albuterol sulfate [ProAir HFA] 1 puff INHALATION Q6H PRN 05/25/18 10/03/19 History aspirin 81 mg PO QPM 05/25/18 10/03/19 History cholecalciferol (vitamin D3) 1,000 unit PO QAM 05/25/18 10/03/19 History [Vitamin D3] coQ10 (ubiquinol) 200 mg PO QAM 05/25/18 10/03/19 History fenofibrate nanocrystallized 145 mg PO QAM 05/25/18 10/03/19 History metformin 500 mg PO BID 05/25/18 10/03/19 History omega 3-ezx-kib-fish oil [Fish Oil] 1 cap PO QAM 05/25/18 10/03/19 History ranitidine HCl 150 mg PO BID 05/25/18 10/03/19 History diclofenac sodium 1 % topical gel 2 gm TOPICAL DAILY PRN gm 03/26/19 10/03/19 History ipratropium bromide 0.03 % nasal 2 sprays INTNAS TID 03/26/19 10/03/19 History spray oxycodone 5 mg PO Q6H PRN #15 tab 08/27/19 10/03/19 Rx levothyroxine 75 mcg PO QAM 09/12/19 10/03/19 History montelukast 10 mg PO PM 09/12/19 10/03/19 History acetaminophen [Acetaminophen Extra 1,000 mg PO Q6H PRN 10/03/19 10/03/19 History Strength] Past Med/Surg History Family History Father Colon cancer Coronary heart disease Myocardial infarction Unknown Colon cancer Coronary heart disease Brother Prostate cancer Myocardial infarction Mother Stroke Other Family history of diabetes mellitus No family history of adverse response to anesthesia Social History Preferred Language: Azeri Communication Ability: Effective Visual Impairment: No Limitations Hearing Ability: Normal Taxicab Starter Required: No Beliefs That Will Affect Care: Spiritual Spiritual Healthcare Practices: Zoroastrian marital status: Current Living Situation: Spouse Other Information That Helps Us Care for You: No Feels Safe at Home: Yes Safety Concerns: Feels Safe At This Time Smoking Status: Never smoker Do You Dip or Chew Tobacco: No ; Second Hand Exposure: Yes ( A CHILD, NOT CURRENTLY) ; Tobacco Cessation Education Requested by Patient: No Hx Alcohol Use: Yes Alcohol type: wine Hx Substance Use: No Physical Exam Physical Exam: Patient is alert and oriented neurologically intact. Results & Data Vital Signs (Past 12 Hours) Vital Signs Temp Pulse Resp BP Pulse Ox 10/03/19 06:54 36.9 C 75 20 157/90 H 95
[2019-10-03] MEDS ORDERED: CEFAZOLIN 250 MG/ML 1 GM VIAL ONE (08:04)
[2019-10-03] MEDS ORDERED: PHENYLEPHRINE 100MCG/ML 5ML SYR ONE (08:05)
[2019-10-03] MEDS ORDERED: ePHEDrine sulfate 50 MG/ML SYR ONE (08:05)
[2019-10-03] MEDS ORDERED: NEOSTIGMINE METHYLSULFATE 1 MG/ML 10ML VIAL ONE (08:22)
[2019-10-03] MEDS ORDERED: GLYCOPYRROLATE 0.2 MG/ML VIAL ONE (08:22)
--- NOTE | 2019-10-03 08:38 | Operative Report ---
Post Operative Report Pre & Post Diagnosis Operation Date: 10/03/19 07:45 Pre-Op Diagnosis: SI Joint Dysfunction Post-Op Diagnosis: SI Joint Dysfunction I identified the patient and participated in the time-out.: Yes Procedure Operation Date: 10/03/19 07:45 Actual Procedures #1 open left sacroiliac fusion. #2 placement of 20 mm allograft filled with infuse collagen sponge within the left SI joint. #3 placement of 2 PANG-coated slotted percutaneous SI joint screws filled with infuse collagen sponge. Surgeon Kenny Sutherland, DO Mineralogy Teacher Stephany Pollock Estimated Blood Loss 10 Findings Consistent with Post-Op Diagnosis Specimens None Indications This is a 73-year-old female known to me that presents with above-mentioned diagnosis after failing extensive course of nonoperative care elected to undergo the above-mentioned procedure. Description of Procedure Patient was met with identified informed consent obtained. Patient was then taken to the operative suite underwent an patient placed in a prone position the Bennie table chest padded bolsters. All bony prominences well-padded eyes inspected to ensure no external pressure placed upon them. This point the left upper buttock was prepped and draped in normal sterile fashion. With fluoroscopy identified the alignment of the left SI joint. Incision was then placed directly overlying this joint. I was able to expose the joint and using a joint finder I tapped this across the joint placing a cannula over the joint finder. Again verifying my position visually and with fluoroscopy. And curetted out the joint and placed a 20 mm bony allograft filled with infuse collagen sponge directly within the joint. After this was placed a second incision was placed along the left upper buttock and in line with the posterior sacral slope. A guidewire was then positioned and with fluoroscopy in AP lateral inlet and outlet views was placed across superior aspect of the SI joint. I then dilated to a 10 mm screw cannula placed in a cannulated drill placed across the guidewire was used to open up the hole for the screw. I then placed a 45 mm PANG-coated slotted screw filled with infuse collagen sponge across the superior SI joint. And our guide was then utilized and a second distal screw was placed in the exact same fashion. The screw was 40 mm in length again PANG-coated slotted filled with infuse collagen sponge. The screws demonstrated excellent purchase and fit. The incisions were then copiously irrigated closed with subcutaneous Vicryl and 4 Monocryl for final skin closure. Steri-Strip sterile dressings placed. Patient will continue to PACU stable condition. Please note Stephany Pollock present at the entire procedure involved the patient positioning complex portions of the surgery and final skin closure. I attest to the content of the Intraoperative Record and any orders documented therein. Any exceptions are noted below.
[2019-10-03] MEDS: HYDROmorphone INJ 1 MG/ML SYRINGE IV PRN ×2 (09:13→09:18)
--- NOTE | 2019-10-03 09:21 | Fluoroscopy Report ---
FL sacrum CLINICAL HISTORY: LEFT SI JOINT FUSION COMPARISON STUDY: None. FLUOROSCOPY TIME: 1 minute and 12 seconds. FINDINGS: 3 fluoroscopic spot images of the left sacroiliac joint were submitted. There are 2 cannula nikolai screws fusing the left sacroiliac joint. The hardware appears intact. IMPRESSION: Fluoroscopy provided for left sacroiliac joint fusion. ACT 112: Negative or not required by law. Electronically signed by: Omero Galvin M.D. 10/03/2019 9:19 AM
[2019-10-03] MEDS ORDERED: FLOSEAL HEMOSTATIC MATRIX 10ML TOP ONE (10:04)
--- NOTE | 2019-10-03 10:05 | Anesthesiology Progress Note ---
Date of Service October 03, 2019 Anesthesia Post Procedure Vital Signs Vital Signs: Temp Pulse Pulse Resp BP Pulse Ox 10/03/19 09:45 73 13 121/72 94 10/03/19 09:40 73 18 130/64 96 10/03/19 09:30 36.3 C L 72 16 114/61 95 10/03/19 09:20 77 16 103/69 97 10/03/19 09:10 78 13 124/69 97 10/03/19 09:00 75 22 122/73 93 10/03/19 08:53 36.5 C 95 H 12 122/88 97 10/03/19 06:54 36.9 C 75 20 157/90 H 95 Pain Intensity Right Back: Pain Intensity: 1 Sacrum: Pain Intensity: 2 Transfer of Care Handoff Completed per policy Notes Mental Status: alert / awake / arousable Patient Amnestic to Procedure: Yes Nausea / Vomiting: adequately controlled Pain: adequately controlled Airway Patency, RR, SpO2: stable & adequate BP & HR: stable & adequate Hydration State: stable & adequate Anesthetic Complications: no major complications apparent
[2019-10-03] MEDS ORDERED: ACETAMINOPHEN 325 MG TAB PO PRN (10:14)
[2019-10-03] MEDS ORDERED: OXYCODONE HCL IR 5 MG TAB (IMMEDIATE RELEASE) PO PRN ×2 (10:14)
[2019-10-03] MEDS ORDERED: ACETAMINOPHEN 500 MG TAB PO PRN (10:14)
[2019-10-03] MEDS ORDERED: LORazepam 1 MG TAB PO PRN (10:14)
[2019-10-03] MEDS ORDERED: NON-FORMULARY MEDICATION (Coq10 (Ubiquinol) 200 MG) PO SCH (10:14)
[2019-10-03] MEDS ORDERED: DO NOT ADMINISTER PNEUMOCOCCAL VACCINE PRN (10:14)
[2019-10-03] MEDS ORDERED: DO NOT ADMINISTER FLU VACCINE PRN (10:14)
[2019-10-03] MEDS ORDERED: HYDROmorphone INJ 0.5 MG/0.5 ML SYR IV PRN (10:33)
[2019-10-03] MEDS: SODIUM CHLORIDE 0.9% 1000ML 1,000 ML IV SCH ×2 (12:55→21:01)
[2019-10-03] MEDS: FENOFIBRATE NANOCRYSTALLIZED 145 MG TABLET PO SCH (12:56)
[2019-10-03] MEDS: CHOLECALCIFEROL 1,000 UNITS 25 MCG TAB PO SCH (12:56)
[2019-10-03] MEDS: DOCUSATE SODIUM 100 MG CAP PO SCH ×2 (12:56→21:01)
[2019-10-03] MEDS: ACETAMINOPHEN 500 MG TAB PO PRN ×2 (15:05→21:01)
[2019-10-03] MEDS: CEFAZOLIN 1000MG 1,000 MG/7.5 ML SYR IV SCH (15:06)
[2019-10-03] MEDS ORDERED: PHARMACY GLYCEMIC MGMT CONSULT PRN (17:32)
[2019-10-03] MEDS ORDERED: GLUCOSE 10 TABS/TUBE PO PRN (17:45)
[2019-10-03] MEDS ORDERED: CARBOHYDRATES FOR HYPOGLYCEMIA PO PRN (17:45)
[2019-10-03] MEDS ORDERED: GLUCOSE 40% GEL 15 GM TUBE PO PRN (17:45)
[2019-10-03] MEDS ORDERED: GLUCAGON FOR INJ 1 MG VIAL SQ PRN (17:45)
[2019-10-03] MEDS ORDERED: DEXTROSE 50% 50 ML SYRINGE IV PRN (17:45)
[2019-10-03] MEDS: INSULIN ASPART 100 UNITS/ML 3 ML PEN SC SCH ×2 (18:28→22:01)
[2019-10-03] MEDS ORDERED: ASPIRIN 81 MG ECTAB PO SCH (21:00)
[2019-10-03] MEDS ORDERED: MONTELUKAST SODIUM 10 MG TABLET PO SCH (21:00)
[2019-10-04] MEDS: CEFAZOLIN 1000MG 1,000 MG/7.5 ML SYR IV SCH ×2 (00:11→08:38)
[2019-10-04] MEDS ORDERED: LEVOTHYROXINE SODIUM 75 MCG TABLET PO SCH (06:30)
--- NOTE | 2019-10-04 08:00 | Anesthesiology Progress Note ---
Date of Service October 04, 2019 Anesthesia Post Procedure Vital Signs Vital Signs: Temp Pulse Pulse Resp BP Pulse Ox 10/04/19 07:41 36.7 C 68 16 139/69 95 10/04/19 06:53 36.7 C 68 16 139/69 95 10/04/19 03:00 36.8 C 75 18 116/67 95 10/03/19 23:20 36.8 C 76 18 124/70 96 10/03/19 19:06 36.8 C 88 17 113/63 96 10/03/19 15:14 37.1 C 97 H 16 142/77 H 91 10/03/19 13:05 36.9 C 105 H 16 128/73 94 10/03/19 12:55 95 H 16 132/72 97 10/03/19 11:59 85 16 148/84 H 96 10/03/19 11:05 86 16 113/68 96 10/03/19 10:33 76 16 128/70 97 10/03/19 10:05 36.5 C 73 16 127/71 96 10/03/19 09:45 73 13 121/72 94 10/03/19 09:40 73 18 130/64 96 10/03/19 09:30 36.3 C L 72 16 114/61 95 10/03/19 09:20 77 16 103/69 97 10/03/19 09:10 78 13 124/69 97 10/03/19 09:00 75 22 122/73 93 10/03/19 08:53 36.5 C 95 H 12 122/88 97 Pain Intensity Right Back: Pain Intensity: 1 Sacrum: Pain Intensity: 2 Lower Back: Pain Intensity: 1 Left Lower Back: Pain Intensity: 1 Notes Mental Status: alert / awake / arousable and participated in evaluation Patient Amnestic to Procedure: Yes Nausea / Vomiting: adequately controlled Pain: adequately controlled Airway Patency, RR, SpO2: stable & adequate BP & HR: stable & adequate Hydration State: stable & adequate Anesthetic Complications: no major complications apparent and Pt Satisfied with anesthetic care
[2019-10-04 08:36] LABS: Creatinine Clr Calc Pharmacy 55.7 ml/min; Est GFR (African American) 89.4; Est GFR (Non-African American) 77.1
[2019-10-04] MEDS: DOCUSATE SODIUM 100 MG CAP PO SCH (08:39)
[2019-10-04] MEDS: FENOFIBRATE NANOCRYSTALLIZED 145 MG TABLET PO SCH (08:39)
[2019-10-04] MEDS: CHOLECALCIFEROL 1,000 UNITS 25 MCG TAB PO SCH (08:39)
[2019-10-04] MEDS: INSULIN ASPART 100 UNITS/ML 3 ML PEN SC SCH ×2 (08:42→13:17)
--- NOTE | 2019-10-04 10:33 | Discharge Summary ---
Date of Service October 04, 2019 Admission HPI Per Admitting Provider This is a 73-year-old female known to the presents with chronic persistent sacroiliitis. After failing extensive course of nonoperative care she is here for surgical intervention. Principal Diagnosis Sacroiliitis Discharge Data Allergies Allergy/AdvReac Type Severity Reaction Status Date / Time clindamycin Allergy Severe full body Verified 10/03/19 06:44 rash hydrochlorothiazide Allergy Severe severe Verified 10/03/19 06:44 rash and itching (with Dyazide) nickel Allergy Severe rash, Verified 10/03/19 06:44 blisters, full body itching Sulfa (Sulfonamide Allergy Severe rash Verified 10/03/19 06:44 Antibiotics) triamterene Allergy Severe severe Verified 10/03/19 06:46 rash and itching (with Dyazide) bacitracin Allergy Intermediate hives Verified 10/03/19 06:44 doxycycline Allergy Intermediate rash Verified 10/03/19 06:44 neomycin Allergy Intermediate hives Verified 10/03/19 06:44 polymyxin B Allergy Intermediate hives Verified 10/03/19 06:44 tetracycline Allergy Intermediate rash Verified 10/03/19 06:44 gold sodium thiomalate Allergy Mild Rash Verified 10/03/19 06:46 Dyazide Allergy Unknown ` Verified 10/28/15 11:40 Procedures Performed Operation Date: 10/03/19 07:45 Actual Procedures p Left Sacroiliac Joint Fusion(Left) - Kenny Sutherland DO Ordered Studies 10/03/19 07:45 FL fluoroscopy <1hr Routine FL sacrum Routine Hospital Course (1) Sacroiliitis: Patient went fusion to the left SI joint. Tolerated well second orthopedic for postoperative postop day 1 pain was well controlled ambulate with a walker Total Time Total Time Spent Total Time Spent (In Minutes): 20 minutes Discharge Plan Discharge Items Patient Disposition: Home - Self-Care Reason For Visit: SI Joint Dysfunction Discharge Diagnosis: Sacroiliitis Activity: Per Instructions section Lifting: No more than 10 pounds Exercise/Sports: Wait until after follow-up appointment Weightbearing: Left toe touch Non-emergency contact: Primary Care Provider Call non-emergency contact if: you have any medication questions Follow-up/Referrals: Tawanda Villela MD [Primary Care Provider] - Diet: Regular Addtl Attending Provider Instructions: Patient is to maintain toe-touch weightbearing to left lower extremity with the use of a walker. She will follow-up in the office in 2 weeks. She may shower in 2 to 3 days. Pending Studies at Discharge: No Stand-Alone Forms: My [facility], Smoking Cessation Medications and DC Order Prescriptions: New oxycodone 5 mg tablet 5 mg PO Q6H PRN (Reason: pain, severe) Qty: 10 RF: 0 Continued diclofenac sodium 1 % gel 2 gm topical DAILY PRN (Reason: Pain) RF: 0 ipratropium bromide 0.03 % spray,non-aerosol 2 sprays INTNAS TID RF: 0 oxycodone 5 mg tablet 5 mg PO Q6H PRN (Reason: pain, severe) Qty: 15 RF: 0 ranitidine HCl 150 mg Tablet 150 mg PO BID RF: 0 aspirin 81 mg Tablet,Chewable 81 mg PO QPM RF: 0 albuterol sulfate [ProAir HFA] 90 mcg/actuation Hfa Aerosol Inhaler 1 puff INHALATION Q6H PRN (Reason: Shortness Of Breath) RF: 0 cholecalciferol (vitamin D3) [Vitamin D3] 1,000 unit Capsule 1,000 unit PO QAM RF: 0 Multivitamin 50 Plus Tablet 1 tab PO QAM RF: 0 fenofibrate nanocrystallized 145 mg Tablet 145 mg PO QAM RF: 0 coQ10 (ubiquinol) 200 mg Capsule 200 mg PO QAM RF: 0 omega 4-jqn-hhy-fish oil [Fish Oil] 1,000 mg (120 mg-180 mg) Capsule 1 cap PO QAM RF: 0 metformin 500 mg Tablet 500 mg PO BID RF: 0 levothyroxine 75 mcg tablet 75 mcg PO QAM RF: 0 montelukast 10 mg Tablet 10 mg PO PM RF: 0 acetaminophen [Acetaminophen Extra Strength] 500 mg Tablet 1,000 mg PO Q6H PRN (Reason: Pain) RF: 0 Discharge Orders: Discharge Order (Routine); Ordered 10/04/19 Ordered By: Kenny Sutherland Admission Data Admit Date/Time: 10/03/19 09:11 Attending Provider: Kenny Sutherland Admit Provider: Kenny Sutherland Primary Care Provider: Tawanda Villela Other Interventions: Discharge Summary Assessment (RN) Last Done: 10/04/19 07:41
[2019-10-04] MEDS ORDERED: METFORMIN HCL 500 MG TAB PO SCH (17:00)
== END 2019-10-04 13:35 | disposition home or self-care (01) | DRG 460 ==
LOC: ASU 06:11 → 3E 09:11